=== PATIENT | male | born 1955 ===

== ENCOUNTER 2017-01-03 10:46 | Inpatient (IN) | payer BC ==
[2017-01-03 11:03] VITALS: BMI 31.3
--- NOTE | 2017-01-03 13:03 | C.PDOC ---
History Of Present Illness 61 year old male presents to the ED for evaluation after taking out his george catheter himself at 3am today. Patient's daughter noted he had the catheter placed two weeks at [facility] and he has had pain. He is scheduled to have surgery on his prostate next month. Patient is uncooperative and daughter denies fever, diarrhea, or vomiting. Chief Complaint (Nursing): Male Genitourinary History Per: Patient, Family (daughter ) History/Exam Limitations: other (patient was not answering questions ) Onset/Duration Of Symptoms: Hrs Current Symptoms Are (Timing): Still Present Quality Of Discomfort: "Pain" Associated Symptoms: denies: Fever, Chills, Nausea, Vomiting, Diarrhea Alleviating Factors: None Recent travel outside of the [place]: No Past Medical History Reviewed: Historical Data, Nursing Documentation, Vital Signs Vital Signs: Last Vital Signs Temp 98.7 F 01/03/17 17:09 Pulse 93 H 01/03/17 17:09 Resp 18 01/03/17 17:09 BP 103/56 L 01/03/17 17:09 Pulse Ox 100 01/03/17 18:21 Family History: States: Unknown Family Hx - Social History Hx Alcohol Use: No Hx Substance Use: No - Immunization History Hx Influenza Vaccination: No Review Of Systems Constitutional: Negative for: Fever, Chills Gastrointestinal: Negative for: Vomiting, Diarrhea Genitourinary: Positive for: Other (Evaluation after george catheter removal ) Physical Exam - Physical Exam Appears: Non-toxic, No Acute Distress, Other (Patient is warm to touch ) Skin: Warm, Dry Head: Atraumatic, Normacephalic Eye(s): bilateral: Normal Inspection, PERRL, EOMI Oral Mucosa: Moist Neck: Supple Cardiovascular: Rhythm Regular, No Murmur Respiratory: No Rales, No Rhonchi, No Wheezing, Other (clear to auscultation bilaterally) Gastrointestinal/Abdominal: Soft, No Tenderness, No Distention, No Guarding, No Rebound Male Genital: Normal Inspection, No Inguinal Swelling, No Scrotal Swelling Extremity: Normal ROM, No Tenderness Neurological/Psych: Oriented x3 ED Course And Treatment - Laboratory Results Result Diagrams: 01/03/17 14:50 01/03/17 14:50 O2 Sat by Pulse Oximetry: 100 (RA) Progress Note: George catheter was placed. Medical Decision Making Medical Decision Making: UTI on UA. Fever responded to APAP. Patient admitted for fever, UTI to medicine service. Disposition - Disposition Disposition: HOSPITALIZED Disposition Time: 15:15 Condition: STABLE - Clinical Impression Clinical Impression: UTI (urinary tract infection) - Scribe Statement The provider has reviewed the documentation as recorded by the Scribe Mimi Adame All medical record entries made by the Anishibbk were at my direction and personally dictated by me. I have reviewed the chart and agree that the record accurately reflects my personal performance of the history, physical exam, medical decision making, and the department course for this patient. I have also personally directed, reviewed, and agree with the discharge instructions and disposition.
[2017-01-03 15:00] LABS: BASO % 0.4 % (0.0-2.0); EOS % 0.2 % (0.0-4.0); LYMPH # 0.2 K/uL (1.0-4.3); LYMPH % 7.2 % (20.0-40.0); MEAN CELL VOLUME 68.4 fL (80.0-94.0); MEAN CORPUSCULAR HEMOGLOBIN 23.1 pg (27.0-31.0); MEAN CORPUSCULAR HGB CONC 33.8 g/dL (33.0-37.0); MEAN PLATELET VOLUME 9.8 fL (7.2-11.7); RBC URINE 245 /hpf (0-3); URINE BACTERIA OCC (<OCC); URINE BILIRUBIN NEGATIVE (NEGATIVE); URINE BLOOD 3+ (NEGATIVE); URINE COLOR Amber (YELLOW); URINE GLUCOSE (UA) NORMAL (Normal); URINE KETONE TRACE mg/dL (NEGATIVE); URINE LEUKOCYTE ESTERASE 3+ Leu/uL (Negative); URINE PROTEIN 2+ mg/dL (NEGATIVE); URINE UROBILINOGEN NORMAL mg/dL (0.2-1.0); WBC URINE 228 /hpf (0-5); WHITE BLOOD COUNT 3.2 K/uL (4.8-10.8)
[2017-01-03 15:01] LABS: INR 1.3
[2017-01-03 15:03] LABS: PLATELET COUNT 53 K/uL (130-400)
[2017-01-03 15:09] LABS: VENOUS BLOOD GAS BASE EXCESS 3.9 mmol/L (0.0-2.0); VENOUS BLOOD GAS PCO2 38 mmHg (40-60); VENOUS BLOOD PH 7.47 (7.32-7.43)
--- NOTE | 2017-01-03 15:14 | RAD ---
PROCEDURE: Chest dated 01/03/2017. HISTORY: r/o infiltrate COMPARISON: None available. FINDINGS: LUNGS: Poor inspiration with low lung volumes, crowded bronchovascular markings and mild bibasilar atelectasis. . Developing lower lobe infiltrate could be excluded followup radiographs. PLEURA: No pneumothorax or pleural fluid seen. CARDIOVASCULAR: Cardiomegaly. OSSEOUS STRUCTURES: No significant abnormalities. VISUALIZED UPPER ABDOMEN: Normal. OTHER FINDINGS: None. IMPRESSION: Poor inspiration with low lung volumes, crowded bronchovascular markings and mild bibasilar atelectasis.
[2017-01-03 15:28] LABS: CHLORIDE 97 mmol/L (98-107); SODIUM 133 mmol/L (132-148)
[2017-01-03] MEDS ORDERED: cefTRIAXone IV 1 gm in Dextros 50 ML IVPB ONE (15:28)
[2017-01-03 15:29] LABS: NEUTROPHIL 68 % (50-75); POTASSIUM 4.2 mmol/L (3.6-5.2); TOTAL CELLS COUNTED 50
[2017-01-03 15:30] LABS: GFR AFRICAN-AMERICAN > 60
[2017-01-03 15:31] LABS: ALKALINE PHOSPHATASE 95 U/L (38-126); ALT/SGPT 96 U/L (21-72); AST/SGOT 187 U/L (17-59); BILIRUBIN,TOTAL 2.4 mg/dL (0.2-1.3); BLOOD UREA NITROGEN 19 mg/dL (9-20); CALCIUM 9.1 mg/dl (8.6-10.4); CARBON DIOXIDE 28 mmol/L (22-30); GLUCOSE,RANDOM 141 mg/dL (75-110); TOTAL PROTEIN 7.7 g/dL (6.3-8.3)
[2017-01-03] MEDS ORDERED: Sodium Chloride 0.9% 1,000 ML IV SCH ×2 (15:45→17:45)
[2017-01-03] MEDS ORDERED: Sodium Chloride 0.9% 1,000 ML IV ONE ×2 (18:27)
--- NOTE | 2017-01-03 18:34 | CP.PCM.CON ---
History of Present Illness - History of Present Illness History of Present Illness: 61 year old male presents to the ED for evaluation after taking out his george catheter himself at 3am today. Patient's daughter noted he had the catheter placed two weeks at [facility] and he has had pain. He is scheduled to have surgery on his prostate next month. Patient is uncooperative and daughter denies fever, diarrhea, or vomiting. I was called to eval this 61 yo male with Hx of BPH who pulled out his george at home admitted to reg floor with sepsis and now hypotensive awake and responsive but lethargic and c/o abd pain orders given for antibiortics and Stat bolus NS \ Needs transfer to ICU for pressors Review of Systems - Review of Systems Systems not reviewed;Unavailable: Unstable Vital Signs All systems: reviewed and no additional remarkable complaints except - Constitutional Constitutional: As Per HPI - EENT Eyes: absent: As Per HPI, Blind Spots, Blurred Vision, Change in Vision, Decreased Night Vision, Diplopia, Discharge, Dry Eye, Exophthalmos, Floaters, Irritation, Itchy Eyes, Loss of Peripheral Vision, Pain, Photophobia, Requires Corrective Lenses, Sees Flashes, Spots in Vision, Tunnel Vision, Other Visual Disturbances, Loss of Vision, Other Ears: absent: As Per HPI, Decreased Hearing, Ear Discharge, Ear Pain, Tinnitus, Abnormal Hearing, Disequilibrium, Dizziness, Other Nose/Mouth/Throat: absent: As Per HPI, Epistaxis, Nasal Congestion, Nasal Discharge, Nasal Obstruction, Nasal Trauma, Nose Pain, Post Nasal Drip, Sinus Pain, Sinus Pressure, Bleeding Gums, Change in Voice, Dental Pain, Dry Mouth, Dysphagia, Halitosis, Hoarsness, Lip Swelling, Mouth Lesions, Mouth Pain, Odynophagia, Sore Throat, Throat Swelling, Tongue Swelling, Facial Pain, Neck Pain, Neck Mass, Other - Cardiovascular Cardiovascular: absent: As Per HPI, Acrocyanosis, Chest Pain, Chest Pain at Rest , Chest Pain with Activity, Claudication, Diaphoresis, Dyspnea, Dyspnea on Exertion, Edema, Irregular Heart Rhythm, Pain Radiating to Arm/Neck/Jaw, Leg Edema, Leg Ulcers, Lightheadedness, Orthopnea, Palpitations, Paroxysmal Nocturnal Dyspnea, Pedal Edema, Radiating Pain, Rapid Heart Rate, Slow Heart Rate, Syncope, Other - Respiratory Respiratory: absent: As Per HPI, Cough, Dyspnea, Hemoptysis, Dyspnea on Exertion , Wheezing, Snoring, Stridor, Pain on Inspiration, Chest Congestion, Excessive Mucous Production, Change in Mucous Color, Pain with Coughing, Other - Gastrointestinal Gastrointestinal: absent: As Per HPI, Abdominal Pain, Belching, Bloating, Change in Bowel Habits, Change in Stool Character, Coffee Ground Emesis, Constipation, Cramping, Diarrhea, Dyspepsia, Dysphagia, Early Satiety, Excessive Flatus, Fecal Incontinence, Heartburn, Hematemesis, Hematochezia, Loose Stools, Melena, Nausea, Odynophagia, Temesmus, Vomiting, Other - Genitourinary Genitourinary: As Per HPI - Reproductive: Male Reproductive:Male: As Per HPI - Musculoskeletal Musculoskeletal: absent: As Per HPI, Abnormal Gait, Arthralgias, Atrophy, Back Pain, Deformity, Joint Swelling, Limited Range of Motion, Loss of Height, Muscle Cramps, Muscle Weakness, Myalgias, Neck Pain, Numbness, Radiating Pain into Limb, Stiffness, Tingling, Other - Neurological Neurological: As Per HPI - Psychiatric Psychiatric: absent: As Per HPI, Abnormal Sleep Pattern, Anhedonia, Anxiety, Auditory Hallucinations, Behavioral Changes, Change in Appetite, Change in Libido, Confusion, Depression, Difficulty Concentrating, Hallucinations, Homicidal Ideation, Hopelessness, Irritability, Memory Loss, Mood Swings, Panic Attacks, Paranoia, Suicidal Ideation, Visual Hallucinations, Tactile Hallucinations, Other - Endocrine Endocrine: absent: As Per HPI, Change in Body Appearance, Change in Libido, Cold Intolorance, Deepening of Voice, Excessive Sweating, Fatigue, Flushing, Heat Intolorance, Increase in Ring/Shoe/Hat Size, Palpitations, Polydipsia, Polyphagia, Polyuria, Other - Hematologic/Lymphatic Hematologic: absent: As Per HPI, Easy Bleeding, Easy Bruising, Lymphadenopathy, Other Past Patient History - Past Social History Smoking Status: Never Smoked - PSYCHIATRIC Hx Substance Use: No - SURGICAL HISTORY Hx Surgeries: No - ANESTHESIA Hx Anesthesia: No Meds Allergies/Adverse Reactions: Allergies Allergy/AdvReac Type Severity Reaction Status Date / Time No Known Allergies Allergy Verified 01/03/17 11:00 - Medications Medications: Current Medications Enoxaparin Sodium (Lovenox) 40 mg SC DAILY ELZA Sodium Chloride (Sodium Chloride 0.9%) 1,000 mls @ 50 mls/hr IV .Q20H ELZA Sodium Chloride (Sodium Chloride 0.9%) 1,000 mls @ 1,000 mls/hr IV .Q1H ONE Stop: 01/03/17 19:26 Sodium Chloride (Sodium Chloride 0.9%) 1,000 mls @ 1,000 mls/hr IV .Q1H ONE Stop: 01/03/17 19:26 Sodium Chloride (Sodium Chloride 0.9%) 1,000 mls @ 100 mls/hr IV .Q10H ELZA Pantoprazole Sodium (Protonix Inj) 40 mg IVP DAILY ELZA Physical Exam - Constitutional Appears: Toxic, In Acute Distress - Head Exam Head Exam: ATRAUMATIC, NORMAL INSPECTION, NORMOCEPHALIC - Eye Exam Eye Exam: EOMI, PERRL. absent: Scleral icterus - ENT Exam ENT Exam: Mucous Membranes Dry, Normal External Ear Exam - Neck Exam Neck exam: Negative for: Lymphadenopathy - Respiratory Exam Respiratory Exam: Decreased Breath Sounds, Clear to Auscultation Bilateral - Cardiovascular Exam Cardiovascular Exam: Tachycardia, REGULAR RHYTHM, +S1, +S2 - GI/Abdominal Exam GI & Abdominal Exam: Diminished Bowel Sounds, Soft. absent: Tenderness - Rectal Exam Rectal Exam: Deferred - Exam Exam: absent: NORMAL INSPECTION - Extremities Exam Extremities exam: Positive for: pedal pulses present. Negative for: calf tenderness, pedal edema, tenderness - Back Exam Back exam: absent: CVA tenderness (L), CVA tenderness (R), paraspinal tenderness - Neurological Exam Neurological exam: Alert, Altered, CN II-XII Intact, Reflexes Normal - Psychiatric Exam Psychiatric exam: Depressed - Skin Skin Exam: Dry Results - Vital Signs Recent Vital Signs: Last Vital Signs Temp 99.8 F H 01/03/17 18:25 Pulse 95 H 01/03/17 18:25 Resp 20 01/03/17 18:25 BP 68/36 L 01/03/17 18:26 Pulse Ox 100 01/03/17 18:25 - Labs Result Diagrams: 01/03/17 14:50 01/03/17 14:50 Labs: Laboratory Results - last 24 hr 01/03/17 01/03/17 01/03/17 14:50 14:50 14:50 WBC 3.2 L RBC 4.10 L Hgb 9.5 L Hct 28.0 L MCV 68.4 L MCH 23.1 L MCHC 33.8 RDW 15.0 H Plt Count 53 L MPV 9.8 Neut % (Auto) 91.2 H Lymph % (Auto) 7.2 L Collier % (Auto) 1.0 Eos % (Auto) 0.2 Baso % (Auto) 0.4 Neut # 2.9 Lymph # 0.2 L Collier # 0.0 Eos # 0.0 Baso # 0.0 Neutrophils % (Manual) 68 Band Neutrophils % 24 H* Lymphocytes % (Manual) 4 L Monocytes % (Manual) 4 Platelet Estimate Decreased L Polychromasia Slight Hypochromasia (manual) Moderate Poikilocytosis (manual Slight Anisocytosis (manual) Slight Target Cells Slight Tear Drop Cells Slight PT INR APTT pO2 VBG pH VBG pCO2 VBG HCO3 VBG Total CO2 VBG O2 Sat (Calc) VBG Base Excess VBG Potassium Glucose Lactate FiO2 Sodium 133 Potassium 4.2 Chloride 97 L Carbon Dioxide 28 Anion Gap 13 BUN 19 Creatinine 1.1 Est GFR ( Amer) > 60 Est GFR (Non-Af Amer) > 60 Random Glucose 141 H Calcium 9.1 Total Bilirubin 2.4 H AST 187 H ALT 96 H Alkaline Phosphatase 95 Total Protein 7.7 Albumin 3.9 Globulin 3.8 Albumin/Globulin Ratio 1.0 Lipase 51 Venous Blood Potassium Urine Color Monalisa Urine Clarity Hazy Urine pH 6.0 Ur Specific [place] 1.009 Urine Protein 2+ H Urine Glucose (UA) Normal Urine Ketones Trace Urine Blood 3+ H Urine Nitrate Negative Urine Bilirubin Negative Urine Urobilinogen Normal Ur Leukocyte Esterase 3+ H Urine WBC (Auto) 228 H Urine RBC (Auto) 245 H Urine Bacteria Occ H 01/03/17 01/03/17 14:50 15:05 WBC RBC Hgb Hct MCV MCH MCHC RDW Plt Count MPV Neut % (Auto) Lymph % (Auto) Collier % (Auto) Eos % (Auto) Baso % (Auto) Neut # Lymph # Collier # Eos # Baso # Neutrophils % (Manual) Band Neutrophils % Lymphocytes % (Manual) Monocytes % (Manual) Platelet Estimate Polychromasia Hypochromasia (manual) Poikilocytosis (manual Anisocytosis (manual) Target Cells Tear Drop Cells PT 14.1 H INR 1.3 APTT 22 pO2 19 L VBG pH 7.47 H VBG pCO2 38 L VBG HCO3 26.2 VBG Total CO2 28.9 H VBG O2 Sat (Calc) 31.6 L VBG Base Excess 3.9 H VBG Potassium 4.5 Glucose 144 H Lactate 1.8 FiO2 21.0 Sodium 137.0 Potassium Chloride 108.0 H Carbon Dioxide Anion Gap BUN Creatinine Est GFR ( Amer) Est GFR (Non-Af Amer) Random Glucose Calcium Total Bilirubin AST ALT Alkaline Phosphatase Total Protein Albumin Globulin Albumin/Globulin Ratio Lipase Venous Blood Potassium 4.5 Urine Color Urine Clarity Urine pH Ur Specific [place] Urine Protein Urine Glucose (UA) Urine Ketones Urine Blood Urine Nitrate Urine Bilirubin Urine Urobilinogen Ur Leukocyte Esterase Urine WBC (Auto) Urine RBC (Auto) Urine Bacteria Assessment & Plan (1) Sepsis Status: Acute (2) BPH (benign prostatic hyperplasia) Status: Acute (3) UTI (urinary tract infection) Status: Acute - Assessment and Plan (Free Text) Assessment: iv fluids pressors when possible icu eval antibiotics eval for george
[2017-01-03] MEDS ORDERED: Gentamicin 160 MG in Sodium Chloride 0.9% 100 ML IVPB STA (18:39)
[2017-01-03] MEDS ORDERED: Meropenem 1 GM in Sodium Chloride 0.9% 100 ML IVPB STA (18:40)
[2017-01-03 18:55] LABS: VENOUS BLOOD GAS BASE EXCESS 2.4 mmol/L (0.0-2.0); VENOUS BLOOD GAS PCO2 42 mmHg (40-60); VENOUS BLOOD PH 7.42 (7.32-7.43)
[2017-01-03] MEDS ORDERED: Albumin Human 5% (12.5 gm/250 ml) IV ONE (19:09)
[2017-01-03] MEDS ORDERED: Iodixanol 320 MG/ML 100 ML BOTTLE IV ONE (20:25)
--- NOTE | 2017-01-03 20:54 | CP.PCM.CON ---
History of Present Illness - History of Present Illness History of Present Illness: 61yo M. PMHx BPH, indwelling george catheter (recent placement). P/w sepsis with UTI. Review of Systems - Review of Systems All systems: reviewed and no additional remarkable complaints except - Musculoskeletal Musculoskeletal: Back Pain Past Patient History - Past Social History Smoking Status: Never Smoked - PSYCHIATRIC Hx Substance Use: No - SURGICAL HISTORY Hx Surgeries: No - ANESTHESIA Hx Anesthesia: No Meds Allergies/Adverse Reactions: Allergies Allergy/AdvReac Type Severity Reaction Status Date / Time No Known Allergies Allergy Verified 01/03/17 11:00 - Medications Medications: Current Medications Enoxaparin Sodium (Lovenox) 40 mg SC DAILY ELZA Sodium Chloride (Sodium Chloride 0.9%) 1,000 mls @ 50 mls/hr IV .Q20H ELZA Sodium Chloride (Sodium Chloride 0.9%) 1,000 mls @ 100 mls/hr IV .Q10H ELZA Meropenem 1 gm/ Sodium (Chloride) 100 mls @ 100 mls/hr IVPB Q8 ELZA Pantoprazole Sodium (Protonix Inj) 40 mg IVP DAILY ELZA Physical Exam - Constitutional Appears: Well - Head Exam Head Exam: ATRAUMATIC, NORMAL INSPECTION, NORMOCEPHALIC - Eye Exam Eye Exam: EOMI, Normal appearance, PERRL - ENT Exam ENT Exam: Mucous Membranes Moist, Normal Exam - Neck Exam Neck exam: Positive for: Normal Inspection - Respiratory Exam Respiratory Exam: Clear to Auscultation Bilateral, NORMAL BREATHING PATTERN - Cardiovascular Exam Cardiovascular Exam: Tachycardia, REGULAR RHYTHM - GI/Abdominal Exam GI & Abdominal Exam: Normal Bowel Sounds, Soft. absent: Tenderness Additional comments: lower right sided back pain. - Neurological Exam Neurological exam: Alert, CN II-XII Intact, Normal Gait, Oriented x3, Reflexes Normal - Psychiatric Exam Psychiatric exam: Normal Affect, Normal Mood Results - Vital Signs Recent Vital Signs: Last Vital Signs Temp 99.8 F H 01/03/17 18:25 Pulse 95 H 01/03/17 18:25 Resp 20 01/03/17 18:25 BP 68/36 L 01/03/17 18:26 Pulse Ox 100 01/03/17 18:25 - Labs Result Diagrams: 01/03/17 14:50 01/03/17 14:50 Labs: Laboratory Results - last 24 hr 01/03/17 01/03/1717 14:50 14:50 14:50 WBC 3.2 L RBC 4.10 L Hgb 9.5 L Hct 28.0 L MCV 68.4 L MCH 23.1 L MCHC 33.8 RDW 15.0 H Plt Count 53 L MPV 9.8 Neut % (Auto) 91.2 H Lymph % (Auto) 7.2 L [place] % (Auto) 1.0 Eos % (Auto) 0.2 Baso % (Auto) 0.4 Neut # 2.9 Lymph # 0.2 L [place] # 0.0 Eos # 0.0 Baso # 0.0 Neutrophils % (Manual) 68 Band Neutrophils % 24 H* Lymphocytes % (Manual) 4 L Monocytes % (Manual) 4 Platelet Estimate Decreased L Polychromasia Slight Hypochromasia (manual) Moderate Poikilocytosis (manual Slight Anisocytosis (manual) Slight Target Cells Slight Tear Drop Cells Slight PT INR APTT pO2 VBG pH VBG pCO2 VBG HCO3 VBG Total CO2 VBG O2 Sat (Calc) VBG Base Excess VBG Potassium Glucose Lactate FiO2 Sodium 133 Potassium 4.2 Chloride 97 L Carbon Dioxide 28 Anion Gap 13 BUN 19 Creatinine 1.1 Est GFR ( Amer) > 60 Est GFR (Non-Af Amer) > 60 Random Glucose 141 H Calcium 9.1 Total Bilirubin 2.4 H AST 187 H ALT 96 H Alkaline Phosphatase 95 Total Protein 7.7 Albumin 3.9 Globulin 3.8 Albumin/Globulin Ratio 1.0 Lipase 51 Venous Blood Potassium Urine Color Monalisa Urine Clarity Hazy Urine pH 6.0 Ur Specific [place] 1.009 Urine Protein 2+ H Urine Glucose (UA) Normal Urine Ketones Trace Urine Blood 3+ H Urine Nitrate Negative Urine Bilirubin Negative Urine Urobilinogen Normal Ur Leukocyte Esterase 3+ H Urine WBC (Auto) 228 H Urine RBC (Auto) 245 H Urine Bacteria Occ H 01/03/17 01/03/17 01/03/17 14:50 15:05 18:51 WBC RBC Hgb Hct MCV MCH MCHC RDW Plt Count MPV Neut % (Auto) Lymph % (Auto) [place] % (Auto) Eos % (Auto) Baso % (Auto) Neut # Lymph # [place] # Eos # Baso # Neutrophils % (Manual) Band Neutrophils % Lymphocytes % (Manual) Monocytes % (Manual) Platelet Estimate Polychromasia Hypochromasia (manual) Poikilocytosis (manual Anisocytosis (manual) Target Cells Tear Drop Cells PT 14.1 H INR 1.3 APTT 22 pO2 19 L 28 L VBG pH 7.47 H 7.42 VBG pCO2 38 L 42 VBG HCO3 26.2 25.6 VBG Total CO2 28.9 H 28.5 H VBG O2 Sat (Calc) 31.6 L 57.1 VBG Base Excess 3.9 H 2.4 H VBG Potassium 4.5 3.2 L Glucose 144 H 137 H Lactate 1.8 2.3 H FiO2 21.0 Sodium 137.0 133.0 Potassium Chloride 108.0 H 101.0 Carbon Dioxide Anion Gap BUN Creatinine Est GFR ( Amer) Est GFR (Non-Af Amer) Random Glucose Calcium Total Bilirubin AST ALT Alkaline Phosphatase Total Protein Albumin Globulin Albumin/Globulin Ratio Lipase Venous Blood Potassium 4.5 3.2 L Urine Color Urine Clarity Urine pH Ur Specific [place] Urine Protein Urine Glucose (UA) Urine Ketones Urine Blood Urine Nitrate Urine Bilirubin Urine Urobilinogen Ur Leukocyte Esterase Urine WBC (Auto) Urine RBC (Auto) Urine Bacteria Assessment & Plan (1) UTI (urinary tract infection) Assessment and Plan: Neuro: alert and oriented x 3 Pulm: no acute issues, breathing spontaneously on room air CV: mild hypotension, started on fluids and albumin drip. Hem: no acute issues Renal: obstructive uropathy. obtaining CT abdomen r/o renal calculi, assess george placement. monitor urine output. Endo: no acute issues GI: npo ID: sepsis with UTI, continue imipenem DVT proph - heparin sq GI proph - not currently indicated george for strict I/O's during acute illness Code status - full code Critical Care Time spent 35 minutes Multi-disciplinary rounds were performed with house staff, nursing, speech therapy, respiratory therapy, pharmacy and nutrition with integrated input from the primary team/attending and other consulting services. The documented time is cumulative and includes review of patient data/exams/labs/chart review and examination of the patient on rounds and throughout the day; time is exclusive of any procedures or teaching time. Status: Acute
[2017-01-03] MEDS ORDERED: Meropenem 1 GM in Sodium Chloride 0.9% 100 ML IVPB SCH (22:00)
--- NOTE | 2017-01-03 22:12 | CT ---
EXAM: CT Abdomen and Pelvis Without and With Intravenous Contrast CLINICAL HISTORY: 61 years old, male; Pain and condition or disease; Kidney or ureter condition; Hydronephrosis and other: Uti; Abdominal pain; Flank; Lower; Additional info: Back pain TECHNIQUE: Axial computed tomography images of the abdomen and pelvis without and with intravenous contrast. All CT scans at this facility use one or more dose reduction techniques, viz.: automated exposure control; ma/kV adjustment per patient size (including targeted exams where dose is matched to indication; i.e. head); or iterative reconstruction technique. Coronal and sagittal reformatted images were created and reviewed. CONTRAST: 100 mL of visipaque 320 administered intravenously. COMPARISON: No relevant prior studies available. FINDINGS: Atelectasis/scarring at the lung bases. [place] at the right lung base. Significant splenomegaly. Spleen demonstrates capsular calcification. Approximately 2 cm hypoattenuating lesion in the right lobe of the liver, which appears to fill-in on delayed imaging. The pancreas and adrenal glands demonstrate no acute abnormalities. Bilateral fullness of the collecting systems. Ureteral wall appears prominent. Bilateral perinephric and periureteric stranding. Subcentimeter hypoattenuating lesion right kidney. The bladder is collapsed around Dixon catheter limiting its evaluation. Air within the bladder may be iatrogenic. Abnormal appearance to the bladder with thickened wall. Further evaluation recommended. Prostate appears prominent in size. Atherosclerosis. Fat containing left inguinal hernia. Small hiatal hernia. Limited evaluation of bowel without contrast. No small bowel obstruction. No ascites. No free air. Degenerative changes. IMPRESSION: Bilateral fullness of the collecting systems. Ureteral wall appears prominent. Bilateral perinephric and periureteric stranding. Subcentimeter hypoattenuating lesion right kidney. The bladder is collapsed around Dixon catheter limiting its evaluation. Air within the bladder may be iatrogenic. Abnormal appearance to the bladder with thickened wall. Further evaluation recommended. Prostate appears prominent in size. Small hiatal hernia. Significant splenomegaly. Spleen demonstrates capsular calcification. Approximately 2 cm hypoattenuating lesion in the right lobe of the liver, which appears to fill-in on delayed imaging. Further evaluation can be performed with ultrasound or MRI. Please see additional details/findings as above. Correlate clinically. Followup as warranted.
[2017-01-03] MEDS ORDERED: Pneumococcal 23-Valent Vaccine IM ONE (22:25)
[2017-01-03] MEDS: Sodium Chloride 0.9% 1,000 ML IV SCH (23:00)
[2017-01-04] MEDS: Meropenem 1 GM in Sodium Chloride 0.9% 100 ML IVPB SCH ×3 (02:31→18:03)
[2017-01-04] MEDS: Sodium Chloride 0.9% 1,000 ML IV SCH ×2 (05:17→15:22)
[2017-01-04] MEDS: Levothyroxine 75 MCG TAB PO SCH (06:30)
[2017-01-04 06:31] LABS: CHLORIDE 102 mmol/L (98-107); POTASSIUM 3.9 mmol/L (3.6-5.2); SODIUM 134 mmol/L (132-148)
[2017-01-04 06:33] LABS: AST/SGOT 107 U/L (17-59); BILIRUBIN,TOTAL 1.4 mg/dL (0.2-1.3); CARBON DIOXIDE 24 mmol/L (22-30); GFR AFRICAN-AMERICAN > 60
[2017-01-04 06:34] LABS: ALKALINE PHOSPHATASE 67 U/L (38-126); ALT/SGPT 134 U/L (21-72); BLOOD UREA NITROGEN 19 mg/dL (9-20); CALCIUM 7.6 mg/dl (8.6-10.4); GLUCOSE,RANDOM 102 mg/dL (75-110); TOTAL PROTEIN 6.1 g/dL (6.3-8.3)
[2017-01-04 06:36] LABS: BASO % 0.2 % (0.0-2.0); EOS % 0.1 % (0.0-4.0); HEMATOCRIT 22.7 % (35.0-51.0); LYMPH # 0.6 K/uL (1.0-4.3); LYMPH % 5.3 % (20.0-40.0); MEAN CELL VOLUME 68.2 fL (80.0-94.0); MEAN CORPUSCULAR HEMOGLOBIN 22.9 pg (27.0-31.0); MEAN CORPUSCULAR HGB CONC 33.5 g/dL (33.0-37.0); MEAN PLATELET VOLUME 9.8 fL (7.2-11.7); MONO # 0.7 K/uL (0.0-0.8); MONO % 6.6 % (0.0-10.0); NRBC % 0.1 % (0.0-2.0); RED CELL DISTRIBUTION WIDTH 15.1 % (11.5-14.5); WHITE BLOOD COUNT 11.1 K/uL (4.8-10.8)
[2017-01-04 06:41] LABS: PLATELET COUNT 42 K/uL (130-400)
[2017-01-04 09:03] LABS: NEUTROPHIL 66 % (50-75); REACTIVE LYMPHOCYTES 1 % (0-0); TOTAL CELLS COUNTED 100
[2017-01-04 09:05] LABS: LARGE PLATELETS PRESENT
[2017-01-04] MEDS: Enoxaparin 40 mg Syringe SC SCH (09:58)
[2017-01-04] MEDS: Propranolol 60 mg ER Cap PO SCH (09:59)
[2017-01-04] MEDS: (Novolog) Insulin Aspart, Recombinant 100 u/ml 10 ml vial SC SCH ×4 (12:20→21:25)
--- NOTE | 2017-01-04 15:10 | CP.PCM.PN ---
Subjective - Date & Time of Evaluation Date of Evaluation: 01/04/17 Time of Evaluation: 12:00 - Subjective Subjective: clinically same Objective - Vital Signs/Intake and Output Vital Signs (last 24 hours): Temp Pulse Resp BP Pulse Ox 98.2 F 88 26 H 86/47 L 99 01/04/17 12:00 01/04/17 15:00 01/04/17 15:00 01/04/17 14:04 01/04/17 15:00 Intake and Output: 01/04/17 01/04/17 06:59 18:59 Intake Total 1700 1240 Output Total 1620 965 Balance 80 275 - Medications Medications: Current Medications Aspirin (Ecotrin) 81 mg PO DAILY [facility] Last Admin: 01/04/17 09:59 Dose: 81 mg Enoxaparin Sodium (Lovenox) 40 mg SC DAILY [facility] Last Admin: 01/04/17 09:58 Dose: 40 mg Hydrochlorothiazide (Hydrodiuril) 25 mg PO DAILY [facility] Last Admin: 01/04/17 09:59 Dose: Not Given Sodium Chloride (Sodium Chloride 0.9%) 1,000 mls @ 100 mls/hr IV .Q10H [facility] Last Admin: 01/04/17 05:17 Dose: 100 mls/hr Meropenem 1 gm/ Sodium (Chloride) 100 mls @ 100 mls/hr IVPB Q8H [facility] Last Admin: 01/04/17 10:00 Dose: 100 mls/hr Insulin Aspart (Novolog) 0 unit SC ACHS [facility] PRN Reason: Protocol Last Admin: 01/04/17 12:24 Dose: Not Given Levothyroxine Sodium (Synthroid) 75 mcg PO DAILY@0630 [facility] Losartan Potassium (Cozaar) 100 mg PO DAILY [facility] Last Admin: 01/04/17 09:59 Dose: Not Given Pantoprazole Sodium (Protonix Inj) 40 mg IVP DAILY [facility] Last Admin: 01/04/17 09:58 Dose: 40 mg Pneumococcal Polyvalent Vaccine (Pneumovax 23 Vaccine) 0.5 ml IM .ONCE ONE Stop: 01/06/17 01:31 Propranolol HCl (Inderal La) 60 mg PO DAILY [facility] Last Admin: 01/04/17 09:59 Dose: Not Given Tamsulosin HCl (Flomax) 0.4 mg PO DAILY [facility] Last Admin: 01/04/17 09:59 Dose: 0.4 mg - Labs Labs: 01/04/17 06:07 01/04/17 06:07 PT 14.1 SECONDS (9.7-12.2) H 01/03/17 14:50 INR 1.3 01/03/17 14:50 APTT 22 SECONDS (21-34) 01/03/17 14:50 Assessment and Plan - Assessment and Plan (Free Text) Plan: Continue Lovenox 40 mg and continue on meropenem continue septic workup Synthroid Discussed with the family member who is sitting as patient has possible history of for hepatocellular carcinoma seen by somebody Frank patient knows that patient did not give a diagnosis of hepatocellular carcinoma the patient claims patient has cirrhosis Patient is seen by the urologist last name is Dr. Downing does not know the first name somebody in the [place] Patient has multiple lesions on the liver and the kidney Continue meropenem ID consult Follow-up with the septic workup
--- NOTE | 2017-01-04 16:52 | CP.CCUPN ---
CCU Subjective - Physician Review Events Since Last Encounter (Free Text): 01/04/17 16:47 patient is feeling better, no complaints CCU Objective - Vital Signs / Intake & Output Vital Signs (Last 4 hours): Vital Signs Temp Pulse Resp BP Pulse Ox 01/04/17 16:30 80/53 L 01/04/17 16:29 97 H 13 100 01/04/17 16:05 91 H 27 H 82/49 L 100 01/04/17 16:00 99.4 F 90 19 99 01/04/17 15:30 91 H 22 94 L 01/04/17 15:05 88 23 85/47 L 100 01/04/17 15:00 88 26 H 99 01/04/17 14:30 86 26 H 98 01/04/17 14:04 82 20 86/47 L 100 01/04/17 14:00 83 20 100 01/04/17 13:30 82 21 100 01/04/17 13:04 83 28 H 97/55 L 99 01/04/17 13:00 83 28 H 100 Intake and Output (Last 8hrs): Intake & Output 01/04/17 01/04/17 01/04/17 06:59 14:59 22:59 Intake Total 1350 1460 200 Output Total 920 1140 300 Balance 430 320 -100 Intake: Intake, IV Amount 1350 1000 200 Left Forearm 300 900 200 Right Antecubital 1050 100 Oral 460 Output: Urine 920 1140 300 Urethral (George) 920 1140 300 Other: # Bowel Movements 0 0 - Physical Exam Head: Positive for: Atraumatic, Normocephalic Pupils: Positive for: PERRL Extroacular Muscles: Positive for: EOMI Conjunctiva: Positive for: Normal Mouth: Positive for: Moist Mucous Membranes Pharnyx: Positive for: Normal Neck: Positive for: Normal Range of Motion Respiratory/Chest: Positive for: Clear to Auscultation, Good Air Exchange, Respiratory Distress Cardiovascular: Positive for: Regular Rate and Rhythm Abdomen: Positive for: Normal Bowel Sounds. Negative for: Tenderness, Distention Neurological: Positive for: GCS=15 Psychiatric: Positive for: Alert, Oriented x 3 - Medications Active Medications: Active Medications Generic Name Dose Route Start Last Admin Trade Name Freq PRN Reason Stop Dose Admin Aspirin 81 mg 01/04/17 10:00 01/04/17 09:59 Ecotrin PO 81 mg DAILY ELZA Administration Enoxaparin Sodium 40 mg 01/04/17 10:00 01/04/17 09:58 Lovenox SC 40 mg DAILY ELZA Administration Hydrochlorothiazide 25 mg 01/04/17 10:00 01/04/17 09:59 Hydrodiuril PO Not Given DAILY ELZA Sodium Chloride 1,000 mls @ 100 mls/hr 01/03/17 18:30 01/04/17 15:22 Sodium Chloride 0.9% IV 100 mls/hr .Q10H ELZA Administration Meropenem 1 gm/ Sodium 100 mls @ 100 mls/hr 01/04/17 03:00 01/04/17 10:00 Chloride IVPB 100 mls/hr Q8H ELZA Administration Insulin Aspart 0 unit 01/04/17 11:30 01/04/17 16:40 Novolog SC Not Given ACHS [facility] Protocol Levothyroxine Sodium 75 mcg 01/04/17 06:30 Synthroid PO DAILY@0630 [facility] Losartan Potassium 100 mg 01/04/17 10:00 01/04/17 09:59 Cozaar PO Not Given DAILY ELZA Pantoprazole Sodium 40 mg 01/04/17 10:00 01/04/17 09:58 Protonix Inj IVP 40 mg DAILY [facility] Administration Pneumococcal Polyvalent Vaccine 0.5 ml 01/06/17 01:30 Pneumovax 23 Vaccine IM 01/06/17 01:31 .ONCE ONE Propranolol HCl 60 mg 01/04/17 10:00 01/04/17 09:59 Inderal La PO Not Given DAILY [facility] Tamsulosin HCl 0.4 mg 01/04/17 10:00 01/04/17 09:59 Flomax PO 0.4 mg DAILY ELZA Administration - Patient Studies Lab Studies: Microbiology Studies 01/03/17 15:15 Blood Culture - Preliminary Blood NO GROWTH AFTER 24 HOURS 01/03/17 22:19 MRSA Culture (Admit) - Final Nose MRSA NOT DETECTED 01/03/17 15:00 Gram Stain - Final Blood 01/03/17 Unknown Urine Culture - Preliminary Urine Gram Negative Marty Lab Studies 01/04/17 01/04/17 01/04/17 Range/Units 15:58 11:18 07:13 WBC (4.8-10.8) K/uL RBC (4.40-5.90) Mil/uL Hgb (12.0-18.0) g/dL Hct (35.0-51.0) % MCV (80.0-94.0) fL MCH (27.0-31.0) pg MCHC (33.0-37.0) g/dL RDW (11.5-14.5) % Plt Count (130-400) K/uL MPV (7.2-11.7) fL Neut % (Auto) (50.0-75.0) % Lymph % (Auto) (20.0-40.0) % [place] % (Auto) (0.0-10.0) % Eos % (Auto) (0.0-4.0) % Baso % (Auto) (0.0-2.0) % Neut # (1.8-7.0) K/uL Lymph # (1.0-4.3) K/uL [place] # (0.0-0.8) K/uL Eos # (0.0-0.7) K/uL Baso # (0.0-0.2) K/uL Neutrophils % (Manual) (50-75) % Band Neutrophils % (0-2) % Lymphocytes % (Manual) (20-40) % Reactive Lymphs % (0-0) % Monocytes % (Manual) (0-10) % Toxic Granulation Platelet Estimate (NORMAL) Large Platelets Polychromasia Hypochromasia (manual) Anisocytosis (manual) Microcytosis (manual) Target Cells pO2 (30-55) mm/Hg VBG pH (7.32-7.43) VBG pCO2 (40-60) mmHg VBG HCO3 mmol/L VBG Total CO2 (22-28) mmol/L VBG O2 Sat (Calc) (40-65) % VBG Base Excess (0.0-2.0) mmol/L VBG Potassium (3.6-5.2) mmol/L Sodium (132-148) mmol/l Chloride (98-107) mmol/L Glucose (75-110) mg/dl Lactate (0.7-2.1) mmol/L Potassium (3.6-5.2) mmol/L Carbon Dioxide (22-30) mmol/L Anion Gap (10-20) BUN (9-20) mg/dL Creatinine (0.8-1.5) mg/dL Est GFR ( Amer) Est GFR (Non-Af Amer) POC Glucose (mg/dL) 136 H 190 H 117 H (65-110) mg/dL Random Glucose (75-110) mg/dL Lactic Acid (0.7-2.1) mmol/L Calcium (8.6-10.4) mg/dl Total Bilirubin (0.2-1.3) mg/dL AST (17-59) U/L ALT (21-72) U/L Alkaline Phosphatase (38-126) U/L Total Protein (6.3-8.3) g/dL Albumin (3.5-5.0) g/dL Globulin (2.2-3.9) gm/dL Albumin/Globulin Ratio (1.0-2.1) Venous Blood Potassium (3.6-5.2) mmol/L 01/04/17 01/04/17 01/04/17 Range/Units 06:07 06:07 06:07 WBC 11.1 H D (4.8-10.8) K/uL RBC 3.32 L (4.40-5.90) Mil/uL Hgb 7.6 L (12.0-18.0) g/dL Hct 22.7 L (35.0-51.0) % MCV 68.2 L (80.0-94.0) fL MCH 22.9 L (27.0-31.0) pg MCHC 33.5 (33.0-37.0) g/dL RDW 15.1 H (11.5-14.5) % Plt Count 42 L (130-400) K/uL MPV 9.8 (7.2-11.7) fL Neut % (Auto) 87.8 H (50.0-75.0) % Lymph % (Auto) 5.3 L (20.0-40.0) % [place] % (Auto) 6.6 (0.0-10.0) % Eos % (Auto) 0.1 (0.0-4.0) % Baso % (Auto) 0.2 (0.0-2.0) % Neut # 9.7 H (1.8-7.0) K/uL Lymph # 0.6 L (1.0-4.3) K/uL [place] # 0.7 (0.0-0.8) K/uL Eos # 0.0 (0.0-0.7) K/uL Baso # 0.0 (0.0-0.2) K/uL Neutrophils % (Manual) 66 (50-75) % Band Neutrophils % 22 H* (0-2) % Lymphocytes % (Manual) 5 L (20-40) % Reactive Lymphs % 1 H (0-0) % Monocytes % (Manual) 6 (0-10) % Toxic Granulation Present Platelet Estimate Markedly decreased L (NORMAL) Large Platelets Present Polychromasia Slight Hypochromasia (manual) Moderate Anisocytosis (manual) Moderate Microcytosis (manual) Moderate Target Cells Slight pO2 (30-55) mm/Hg VBG pH (7.32-7.43) VBG pCO2 (40-60) mmHg VBG HCO3 mmol/L VBG Total CO2 (22-28) mmol/L VBG O2 Sat (Calc) (40-65) % VBG Base Excess (0.0-2.0) mmol/L VBG Potassium (3.6-5.2) mmol/L Sodium 134 (132-148) mmol/l Chloride 102 (98-107) mmol/L Glucose (75-110) mg/dl Lactate (0.7-2.1) mmol/L Potassium 3.9 (3.6-5.2) mmol/L Carbon Dioxide 24 (22-30) mmol/L Anion Gap 12 (10-20) BUN 19 (9-20) mg/dL Creatinine 1.1 (0.8-1.5) mg/dL Est GFR ( Amer) > 60 Est GFR (Non-Af Amer) > 60 POC Glucose (mg/dL) (65-110) mg/dL Random Glucose 102 (75-110) mg/dL Lactic Acid 1.4 (0.7-2.1) mmol/L Calcium 7.6 L (8.6-10.4) mg/dl Total Bilirubin 1.4 H (0.2-1.3) mg/dL AST 107 H D (17-59) U/L ALT 134 H D (21-72) U/L Alkaline Phosphatase 67 (38-126) U/L Total Protein 6.1 L (6.3-8.3) g/dL Albumin 3.0 L D (3.5-5.0) g/dL Globulin 3.1 (2.2-3.9) gm/dL Albumin/Globulin Ratio 1.0 (1.0-2.1) Venous Blood Potassium (3.6-5.2) mmol/L 01/03/17 01/03/17 Range/Units 22:39 18:51 WBC (4.8-10.8) K/uL RBC (4.40-5.90) Mil/uL Hgb (12.0-18.0) g/dL Hct (35.0-51.0) % MCV (80.0-94.0) fL MCH (27.0-31.0) pg MCHC (33.0-37.0) g/dL RDW (11.5-14.5) % Plt Count (130-400) K/uL MPV (7.2-11.7) fL Neut % (Auto) (50.0-75.0) % Lymph % (Auto) (20.0-40.0) % [place] % (Auto) (0.0-10.0) % Eos % (Auto) (0.0-4.0) % Baso % (Auto) (0.0-2.0) % Neut # (1.8-7.0) K/uL Lymph # (1.0-4.3) K/uL [place] # (0.0-0.8) K/uL Eos # (0.0-0.7) K/uL Baso # (0.0-0.2) K/uL Neutrophils % (Manual) (50-75) % Band Neutrophils % (0-2) % Lymphocytes % (Manual) (20-40) % Reactive Lymphs % (0-0) % Monocytes % (Manual) (0-10) % Toxic Granulation Platelet Estimate (NORMAL) Large Platelets Polychromasia Hypochromasia (manual) Anisocytosis (manual) Microcytosis (manual) Target Cells pO2 28 L (30-55) mm/Hg VBG pH 7.42 (7.32-7.43) VBG pCO2 42 (40-60) mmHg VBG HCO3 25.6 mmol/L VBG Total CO2 28.5 H (22-28) mmol/L VBG O2 Sat (Calc) 57.1 (40-65) % VBG Base Excess 2.4 H (0.0-2.0) mmol/L VBG Potassium 3.2 L (3.6-5.2) mmol/L Sodium 133.0 (132-148) mmol/l Chloride 101.0 (98-107) mmol/L Glucose 137 H (75-110) mg/dl Lactate 2.3 H (0.7-2.1) mmol/L Potassium (3.6-5.2) mmol/L Carbon Dioxide (22-30) mmol/L Anion Gap (10-20) BUN (9-20) mg/dL Creatinine (0.8-1.5) mg/dL Est GFR ( Amer) Est GFR (Non-Af Amer) POC Glucose (mg/dL) 143 H (65-110) mg/dL Random Glucose (75-110) mg/dL Lactic Acid (0.7-2.1) mmol/L Calcium (8.6-10.4) mg/dl Total Bilirubin (0.2-1.3) mg/dL AST (17-59) U/L ALT (21-72) U/L Alkaline Phosphatase (38-126) U/L Total Protein (6.3-8.3) g/dL Albumin (3.5-5.0) g/dL Globulin (2.2-3.9) gm/dL Albumin/Globulin Ratio (1.0-2.1) Venous Blood Potassium 3.2 L (3.6-5.2) mmol/L Laboratory Results - last 24 hr 01/03/17 01/03/17 01/04/17 18:51 22:39 06:07 WBC 11.1 H D RBC 3.32 L Hgb 7.6 L Hct 22.7 L MCV 68.2 L MCH 22.9 L MCHC 33.5 RDW 15.1 H Plt Count 42 L MPV 9.8 Neut % (Auto) 87.8 H Lymph % (Auto) 5.3 L [place] % (Auto) 6.6 Eos % (Auto) 0.1 Baso % (Auto) 0.2 Neut # 9.7 H Lymph # 0.6 L [place] # 0.7 Eos # 0.0 Baso # 0.0 Neutrophils % (Manual) 66 Band Neutrophils % 22 H* Lymphocytes % (Manual) 5 L Reactive Lymphs % 1 H Monocytes % (Manual) 6 Toxic Granulation Present Platelet Estimate Markedly decreased L Large Platelets Present Polychromasia Slight Hypochromasia (manual) Moderate Anisocytosis (manual) Moderate Microcytosis (manual) Moderate Target Cells Slight pO2 28 L VBG pH 7.42 VBG pCO2 42 VBG HCO3 25.6 VBG Total CO2 28.5 H VBG O2 Sat (Calc) 57.1 VBG Base Excess 2.4 H VBG Potassium 3.2 L Sodium 133.0 Chloride 101.0 Glucose 137 H Lactate 2.3 H Potassium Carbon Dioxide Anion Gap BUN Creatinine Est GFR ( Amer) Est GFR (Non-Af Amer) POC Glucose (mg/dL) 143 H Random Glucose Lactic Acid Calcium Total Bilirubin AST ALT Alkaline Phosphatase Total Protein Albumin Globulin Albumin/Globulin Ratio Venous Blood Potassium 3.2 L 01/04/17 01/04/17 01/04/17 06:07 06:07 07:13 WBC RBC Hgb Hct MCV MCH MCHC RDW Plt Count MPV Neut % (Auto) Lymph % (Auto) [place] % (Auto) Eos % (Auto) Baso % (Auto) Neut # Lymph # [place] # Eos # Baso # Neutrophils % (Manual) Band Neutrophils % Lymphocytes % (Manual) Reactive Lymphs % Monocytes % (Manual) Toxic Granulation Platelet Estimate Large Platelets Polychromasia Hypochromasia (manual) Anisocytosis (manual) Microcytosis (manual) Target Cells pO2 VBG pH VBG pCO2 VBG HCO3 VBG Total CO2 VBG O2 Sat (Calc) VBG Base Excess VBG Potassium Sodium 134 Chloride 102 Glucose Lactate Potassium 3.9 Carbon Dioxide 24 Anion Gap 12 BUN 19 Creatinine 1.1 Est GFR ( Amer) > 60 Est GFR (Non-Af Amer) > 60 POC Glucose (mg/dL) 117 H Random Glucose 102 Lactic Acid 1.4 Calcium 7.6 L Total Bilirubin 1.4 H AST 107 H D ALT 134 H D Alkaline Phosphatase 67 Total Protein 6.1 L Albumin 3.0 L D Globulin 3.1 Albumin/Globulin Ratio 1.0 Venous Blood Potassium 01/04/17 01/04/17 11:18 15:58 WBC RBC Hgb Hct MCV MCH MCHC RDW Plt Count MPV Neut % (Auto) Lymph % (Auto) [place] % (Auto) Eos % (Auto) Baso % (Auto) Neut # Lymph # [place] # Eos # Baso # Neutrophils % (Manual) Band Neutrophils % Lymphocytes % (Manual) Reactive Lymphs % Monocytes % (Manual) Toxic Granulation Platelet Estimate Large Platelets Polychromasia Hypochromasia (manual) Anisocytosis (manual) Microcytosis (manual) Target Cells pO2 VBG pH VBG pCO2 VBG HCO3 VBG Total CO2 VBG O2 Sat (Calc) VBG Base Excess VBG Potassium Sodium Chloride Glucose Lactate Potassium Carbon Dioxide Anion Gap BUN Creatinine Est GFR ( Amer) Est GFR (Non-Af Amer) POC Glucose (mg/dL) 190 H 136 H Random Glucose Lactic Acid Calcium Total Bilirubin AST ALT Alkaline Phosphatase Total Protein Albumin Globulin Albumin/Globulin Ratio Venous Blood Potassium Fingerstick Blood Sugar Results: 190 Review of Systems - Review of Systems All systems: reviewed and no additional remarkable complaints except (nothing) Critical Care Progress Note - Nutrition Nutrition: Nutrition Category Date Time Status Heart Healthy Diet [DIET] Diets 01/03/17 Dinner Active Assessment/Plan (1) UTI (urinary tract infection) Assessment and plan: 61yo M. PMHx BPH, indwelling george catheter (recent placement). P/w sepsis with UTI. Neuro: alert and oriented x 3 Pulm: no acute issues, breathing spontaneously on room air CV: mild hypotension, started on fluids and albumin drip. Hem: no acute issues Renal: urine output is within normal limits, CT abdomen showed no evidence of obstructive uropathy. Holding Flomax with current hypotension, george in place. Endo: no acute issues GI: regular diet. ID: sepsis with UTI, continue imipenem. DVT proph - heparin sq GI proph - not currently indicated george for strict I/O's during acute illness Code status - full code Critical Care Time spent 35 minutes Multi-disciplinary rounds were performed with house staff, nursing, speech therapy, respiratory therapy, pharmacy and nutrition with integrated input from the primary team/attending and other consulting services. The documented time is cumulative and includes review of patient data/exams/labs/chart review and examination of the patient on rounds and throughout the day; time is exclusive of any procedures or teaching time. Current Visit: Yes Status: Acute
[2017-01-04 18:29] LABS: BASO % 0.3 % (0.0-2.0); EOS % 0.4 % (0.0-4.0); HEMATOCRIT 24.3 % (35.0-51.0); LYMPH # 1.2 K/uL (1.0-4.3); LYMPH % 14.9 % (20.0-40.0); MEAN CORPUSCULAR HEMOGLOBIN 23.2 pg (27.0-31.0); MEAN CORPUSCULAR HGB CONC 34.1 g/dL (33.0-37.0); MEAN PLATELET VOLUME 9.7 fL (7.2-11.7); MONO # 0.4 K/uL (0.0-0.8); MONO % 5.3 % (0.0-10.0); NRBC % 0.1 % (0.0-2.0); PLATELET COUNT 44 K/uL (130-400); WHITE BLOOD COUNT 8.3 K/uL (4.8-10.8)
[2017-01-04 18:51] LABS: NEUTROPHIL 77 % (50-75); TOTAL CELLS COUNTED 100
[2017-01-04 18:52] LABS: LARGE PLATELETS PRESENT
--- NOTE | 2017-01-04 20:30 | CP.PCM.CON ---
History of Present Illness - History of Present Illness History of Present Illness: 61 year old male with a history of BPH s/p recent george catheter placement, admitted with urosepsis, found to have anemia and thrombocytopenia. The patient is unaware of having blood problems in the past. He does have suprapubic and flank pain. He noted to subjective fevers and chills. He also has noted some blood from his george catheter but denies further abnormal bleeding and bruising. Past medical history: BPH Past surgical history: None Family history: Denies hematologic and oncologic problems Social history: Denies tobacco, alcohol and illicit drug use. Allergies: NKA Review of systems: All remaining review of systems including HEENT, cardiovasular, respiratory, gastrointestinal, genitourinary, musculoskeletal, dermatologic, neurologic, and psychiatric are negative unless mentioned in the HPI. Past Patient History - Past Medical History & Family History Past Medical History?: Yes - Past Social History Smoking Status: Never Smoked - CARDIAC Other/Comment: Cardiac Stenting 2006 in [place] - MUSCULOSKELETAL/RHEUMATOLOGICAL Hx Falls: No - GENITOURINARY/GYNECOLOGICAL Hx Prostate Problems: Yes (BPH) Other/Comment: Under care of Dr Downing at [facility] - PSYCHIATRIC Hx Substance Use: No - SURGICAL HISTORY Hx Surgeries: No - ANESTHESIA Hx Anesthesia: No Meds Allergies/Adverse Reactions: Allergies Allergy/AdvReac Type Severity Reaction Status Date / Time No Known Allergies Allergy Verified 01/03/17 11:00 - Medications Medications: Current Medications Acetaminophen (Tylenol 325mg Tab) 650 mg PO Q6 PRN PRN Reason: Fever >100.4 F Last Admin: 01/04/17 20:27 Dose: 650 mg Aspirin (Ecotrin) 81 mg PO DAILY [facility] Last Admin: 01/04/17 09:59 Dose: 81 mg Enoxaparin Sodium (Lovenox) 40 mg SC DAILY [facility] Last Admin: 01/04/17 09:58 Dose: 40 mg Hydrochlorothiazide (Hydrodiuril) 25 mg PO DAILY [facility] Last Admin: 01/04/17 09:59 Dose: Not Given Sodium Chloride (Sodium Chloride 0.9%) 1,000 mls @ 100 mls/hr IV .Q10H [facility] Last Admin: 01/04/17 15:22 Dose: 100 mls/hr Meropenem 1 gm/ Sodium (Chloride) 100 mls @ 100 mls/hr IVPB Q8H [facility] Last Admin: 01/04/17 18:03 Dose: 100 mls/hr Insulin Aspart (Novolog) 0 unit SC ACHS [facility] PRN Reason: Protocol Last Admin: 01/04/17 16:40 Dose: Not Given Levothyroxine Sodium (Synthroid) 75 mcg PO DAILY@0630 [facility] Last Admin: 01/04/17 06:30 Dose: Not Given Losartan Potassium (Cozaar) 100 mg PO DAILY [facility] Last Admin: 01/04/17 09:59 Dose: Not Given Pantoprazole Sodium (Protonix Inj) 40 mg IVP DAILY [facility] Last Admin: 01/04/17 09:58 Dose: 40 mg Pneumococcal Polyvalent Vaccine (Pneumovax 23 Vaccine) 0.5 ml IM .ONCE ONE Stop: 01/06/17 01:31 Propranolol HCl (Inderal La) 60 mg PO DAILY [facility] Last Admin: 01/04/17 09:59 Dose: Not Given Tamsulosin HCl (Flomax) 0.4 mg PO DAILY [facility] Last Admin: 01/04/17 09:59 Dose: 0.4 mg Physical Exam - Head Exam Head Exam: ATRAUMATIC - Eye Exam Eye Exam: Normal appearance - ENT Exam ENT Exam: Mucous Membranes Dry - Respiratory Exam Respiratory Exam: NORMAL BREATHING PATTERN - Cardiovascular Exam Cardiovascular Exam: +S1, +S2 - GI/Abdominal Exam GI & Abdominal Exam: Normal Bowel Sounds - Extremities Exam Extremities exam: Positive for: normal inspection - Neurological Exam Neurological exam: Oriented x3 - Psychiatric Exam Psychiatric exam: Normal Affect, Normal Mood - Skin Skin Exam: Warm Results - Vital Signs Recent Vital Signs: Last Vital Signs Temp 101.1 F H 01/04/17 20:00 Pulse 89 01/04/17 20:00 Resp 26 H 01/04/17 20:00 BP 107/57 L 01/04/17 20:00 Pulse Ox 97 01/04/17 20:00 - Labs Result Diagrams: 01/07/17 07:37 01/07/17 07:37 Labs: Laboratory Results - last 24 hr 01/03/17 01/04/17 01/04/17 22:39 06:07 06:07 WBC 11.1 H D RBC 3.32 L Hgb 7.6 L Hct 22.7 L MCV 68.2 L MCH 22.9 L MCHC 33.5 RDW 15.1 H Plt Count 42 L MPV 9.8 Neut % (Auto) 87.8 H Lymph % (Auto) 5.3 L [place] % (Auto) 6.6 Eos % (Auto) 0.1 Baso % (Auto) 0.2 Neut # 9.7 H Lymph # 0.6 L [place] # 0.7 Eos # 0.0 Baso # 0.0 Neutrophils % (Manual) 66 Band Neutrophils % 22 H* Lymphocytes % (Manual) 5 L Reactive Lymphs % 1 H Monocytes % (Manual) 6 Differential Comment Toxic Granulation Present Platelet Estimate Markedly decreased L Large Platelets Present Polychromasia Slight Hypochromasia (manual) Moderate Anisocytosis (manual) Moderate Microcytosis (manual) Moderate Target Cells Slight Sodium 134 Potassium 3.9 Chloride 102 Carbon Dioxide 24 Anion Gap 12 BUN 19 Creatinine 1.1 Est GFR ( Amer) > 60 Est GFR (Non-Af Amer) > 60 POC Glucose (mg/dL) 143 H Random Glucose 102 Lactic Acid Calcium 7.6 L Total Bilirubin 1.4 H AST 107 H D ALT 134 H D Alkaline Phosphatase 67 Total Protein 6.1 L Albumin 3.0 L D Globulin 3.1 Albumin/Globulin Ratio 1.0 01/04/17 01/04/17 01/04/17 06:07 07:13 11:18 WBC RBC Hgb Hct MCV MCH MCHC RDW Plt Count MPV Neut % (Auto) Lymph % (Auto) [place] % (Auto) Eos % (Auto) Baso % (Auto) Neut # Lymph # [place] # Eos # Baso # Neutrophils % (Manual) Band Neutrophils % Lymphocytes % (Manual) Reactive Lymphs % Monocytes % (Manual) Differential Comment Toxic Granulation Platelet Estimate Large Platelets Polychromasia Hypochromasia (manual) Anisocytosis (manual) Microcytosis (manual) Target Cells Sodium Potassium Chloride Carbon Dioxide Anion Gap BUN Creatinine Est GFR ( Amer) Est GFR (Non-Af Amer) POC Glucose (mg/dL) 117 H 190 H Random Glucose Lactic Acid 1.4 Calcium Total Bilirubin AST ALT Alkaline Phosphatase Total Protein Albumin Globulin Albumin/Globulin Ratio 01/04/17 01/04/17 15:58 18:15 WBC 8.3 RBC 3.58 L Hgb 8.3 L Hct 24.3 L MCV 68.0 L MCH 23.2 L MCHC 34.1 RDW 15.0 H Plt Count 44 L MPV 9.7 Neut % (Auto) 79.1 H Lymph % (Auto) 14.9 L [place] % (Auto) 5.3 Eos % (Auto) 0.4 Baso % (Auto) 0.3 Neut # 6.5 Lymph # 1.2 [place] # 0.4 Eos # 0.0 Baso # 0.0 Neutrophils % (Manual) 77 H Band Neutrophils % Lymphocytes % (Manual) 20 Reactive Lymphs % Monocytes % (Manual) 3 Differential Comment Y Toxic Granulation Platelet Estimate Markedly decreased L Large Platelets Present Polychromasia Hypochromasia (manual) Slight Anisocytosis (manual) Slight Microcytosis (manual) Moderate Target Cells Sodium Potassium Chloride Carbon Dioxide Anion Gap BUN Creatinine Est GFR ( Amer) Est GFR (Non-Af Amer) POC Glucose (mg/dL) 136 H Random Glucose Lactic Acid Calcium Total Bilirubin AST ALT Alkaline Phosphatase Total Protein Albumin Globulin Albumin/Globulin Ratio Assessment & Plan - Assessment and Plan (Free Text) Assessment: 1. Thrombocytopenia - suspect sepsis related - recommend checking HIV and hepatitis panel - hold DVT prophylaxis and check heparin antibody and serotonin release assay - will review peripheral smear 2. Anemia - check ferritin, retic count, b12, folate, FOBT 3. Liver lesion - recommend US abdomen - check AFP and CA 19-9 4. Renal lesions - ultrasound of the abdomen Thank you for this interesting consult.
[2017-01-05] MEDS: Sodium Chloride 0.9% 1,000 ML IV SCH ×2 (00:59→10:24)
[2017-01-05] MEDS: Meropenem 1 GM in Sodium Chloride 0.9% 100 ML IVPB SCH ×2 (02:39→11:39)
[2017-01-05] MEDS: Levothyroxine 75 MCG TAB PO SCH (05:52)
[2017-01-05 06:55] LABS: CHLORIDE 106 mmol/L (98-107); POTASSIUM 3.6 mmol/L (3.6-5.2); SODIUM 136 mmol/L (132-148)
[2017-01-05 06:57] LABS: GFR AFRICAN-AMERICAN > 60
[2017-01-05 06:58] LABS: ALB/GLOB RATIO 0.9 (1.0-2.1); ALKALINE PHOSPHATASE 78 U/L (38-126); AST/SGOT 46 U/L (17-59); BILIRUBIN,TOTAL 0.9 mg/dL (0.2-1.3); BLOOD UREA NITROGEN 12 mg/dL (9-20); CARBON DIOXIDE 23 mmol/L (22-30); GLUCOSE,RANDOM 92 mg/dL (75-110); PHOSPHOROUS 1.9 mg/dL (2.5-4.5); TOTAL PROTEIN 6.3 g/dL (6.3-8.3)
[2017-01-05 06:59] LABS: ALT/SGPT 91 U/L (21-72); BASO # 0.1 K/uL (0.0-0.2); BASO % 0.7 % (0.0-2.0); CALCIUM 7.9 mg/dl (8.6-10.4); EOS # 0.1 K/uL (0.0-0.7); EOS % 1.2 % (0.0-4.0); HEMATOCRIT 21.6 % (35.0-51.0); LYMPH # 0.6 K/uL (1.0-4.3); LYMPH % 7.9 % (20.0-40.0); MAGNESIUM 1.9 mg/dL (1.6-2.3); MEAN CELL VOLUME 68.9 fL (80.0-94.0); MEAN CORPUSCULAR HEMOGLOBIN 23.1 pg (27.0-31.0); MEAN CORPUSCULAR HGB CONC 33.5 g/dL (33.0-37.0); MEAN PLATELET VOLUME 10.3 fL (7.2-11.7); MONO # 0.4 K/uL (0.0-0.8); MONO % 5.7 % (0.0-10.0); PLATELET COUNT 37 K/uL (130-400); RED CELL DISTRIBUTION WIDTH 14.9 % (11.5-14.5); WHITE BLOOD COUNT 7.2 K/uL (4.8-10.8)
[2017-01-05 08:38] LABS: NEUTROPHIL 77 % (50-75); TOTAL CELLS COUNTED 100
[2017-01-05 08:40] LABS: GIANT PLATELETS PRESENT
[2017-01-05] MEDS: (Novolog) Insulin Aspart, Recombinant 100 u/ml 10 ml vial SC SCH ×5 (08:58→21:45)
[2017-01-05] MEDS: Enoxaparin 40 mg Syringe SC SCH (11:06)
[2017-01-05] MEDS ORDERED: Potassium Phosphate 30 MMOLE in Sodium Chloride 0.9% 250 ML IV ONE (12:00)
--- NOTE | 2017-01-05 12:15 | CON ---
COMPREHENSIVE UROLOGIC ICU CONSULTATION DATE: 01/04/2017 TIME OF CONSULTATION: Roughly 04:30 p.m. in the ICU. HISTORY OF PRESENT ILLNESS: The patient is a 61-year-old male from the [place], who came to [facility] Emergency Room with a history of pulling out his Dixon catheter for diagnosis of BPH and urinary retention. The patient was previously scheduled for prostate surgery in January by Dr. Downing at [facility]. This prostate surgery according to the patient and the family was for benign disease. No history of cancer, especially prostate cancer. The patient currently has a Dixon catheter draining cloudy erwin urine well and the urine culture shows gram-negative rods. The patient was initially given 1 dose of gentamicin and 1 dose of Rocephin IV. The patient is now on meropenem as prescribed by Dr. Nieto (ID). The patient is currently resting comfortably with Dixon catheter draining erwin urine well, but he does complain of some right low back pain. Abdominopelvic CT with and without IV contrast done on 01/03/2017, showed bilateral fullness of the collecting systems. Ureteral wall appears to be prominent. Bilateral perinephric and periureteric stranding. Subcentimeter hypoattenuating lesion in the right kidney and bladder was collapsed around the Dixon catheter limiting its evaluation. Air within the bladder may be iatrogenic, most likely from the insertion of the Dixon catheter. Abnormal appearance of the bladder with thickened wall. Further evaluation recommended; however, this may all have been evaluated completely by Dr. Downing. Prostate appears prominent in size. Small hiatal hernia. Significant splenomegaly. Spleen demonstrates capsular calcification. Approximately 2 cm hypoattenuating lesion in the right lobe of the liver, which appears to fill in on delayed imaging. Further evaluation can be performed with ultrasound or MRI. PAST MEDICAL HISTORY: Positive for diabetes mellitus, hypertension, and thyroid disease. PAST SURGICAL HISTORY: He has no past surgical history. ALLERGIES: HE HAS NO KNOWN ALLERGIES TO ANY MEDICATION. PHYSICAL EXAMINATION GENERAL: The patient is a well-developed, well-nourished male. He is alert, oriented. VITAL SIGNS: Shows a pulse rate of 88, blood pressure is 85/47 and this is one of the reasons why the patient was transferred to the ICU, because he became hypotensive. His O2 sats on nasal cannula is 100%. His temperature has remained afebrile during this hospitalization except during his initial admission, his last temperature in the ICU was 99.4. HEENT: Grossly within normal limits. NECK: Supple. Thyroid not palpable. ABDOMEN: Soft. Not distended or tender. No CVA tenderness and no suprapubic tenderness at this time with the Dixon catheter draining erwin urine well. LABORATORY DATA: His laboratory evaluation today on 01/04/2017, shows a CBC with a WBC count of 11.1, hemoglobin of 7.6 and hematocrit of 22.7 indicating severe anemia with platelet count of 42, indicating thrombocytopenia. His chem profile shows a sodium of 134, potassium of 3.9, chloride of 102, CO2 of 24, BUN and creatinine of 19 and 1.1 respectively with a GFR of greater than 60. His random glucose today is 136. His AST was 107, which was elevated and his ALT was 134, which was also elevated. Alk phosphatase is 67. His urinalysis on 01/03/2017 showed the color was erwin, clarity was hazy, pH was 6.0, specific gravity 1.009, protein 2+, glucose normal, ketones trace, blood 3+, nitrite negative, bilirubin negative, urobilinogen normal, 3+ leukocyte esterase, 228 wbc's, 245 rbc's with occasional bacteria per high power field. DIAGNOSTIC IMPRESSION FOR THIS PATIENT: 1. Urinary retention. 2. Benign prostatic hypertrophy. 3. Urosepsis. 4. Microscopic hematuria secondary to probable urethral injury from pulling out his Dixon catheter. 5. A subcentimeter hypoattenuating lesion in the right kidney, which may have been evaluated by Dr. Downing in the past. 6. Severe anemia. 7. Thrombocytopenia. PLAN FOR THIS PATIENT: Just continue the patient on IV antibiotics for treatment of his urosepsis as per Dr. Nieto (ID). The patient can eventually be discharged back to Dr. Downing at [facility] for his prostate surgery, which the family and the patient thinks may be a laser surgery of the prostate. Chad De Paz MD
--- NOTE | 2017-01-05 14:18 | CP.PCM.PN ---
Subjective - Date & Time of Evaluation Date of Evaluation: 01/05/17 Time of Evaluation: 08:00 - Subjective Subjective: doing better PLts still low- etio unclear switch to Cipro IV Objective - Vital Signs/Intake and Output Vital Signs (last 24 hours): Temp Pulse Resp BP Pulse Ox 99.0 F 75 25 H 112/65 95 01/05/17 12:00 01/05/17 13:00 01/05/17 13:00 01/05/17 12:05 01/05/17 13:00 Intake and Output: 01/05/17 01/05/17 06:59 18:59 Intake Total 1420 1063 Output Total 1055 950 Balance 365 113 - Medications Medications: Current Medications Acetaminophen (Tylenol 325mg Tab) 650 mg PO Q6 PRN PRN Reason: Fever >100.4 F Last Admin: 01/04/17 20:27 Dose: 650 mg Aspirin (Ecotrin) 81 mg PO DAILY [facility] Last Admin: 01/05/17 10:23 Dose: 81 mg Enoxaparin Sodium (Lovenox) 40 mg SC DAILY [facility] Last Admin: 01/05/17 11:06 Dose: Not Given Famotidine (Pepcid) 40 mg PO DAILY [facility] Last Admin: 01/05/17 11:38 Dose: Not Given Hydrochlorothiazide (Hydrodiuril) 25 mg PO DAILY [facility] Last Admin: 01/04/17 09:59 Dose: Not Given Potassium Phosphate 30 mmole/ (Sodium Chloride) 260 mls @ 63 mls/hr IV ONCE ONE Stop: 01/05/17 16:07 Last Admin: 01/05/17 12:09 Dose: 63 mls/hr Tigecycline 100 mg/ Sodium (Chloride) 100 mls @ 100 mls/hr IVPB ONCE ONE Stop: 01/05/17 12:14 Tigecycline 50 mg/ Sodium (Chloride) 100 mls @ 100 mls/hr IVPB Q12H [facility] Insulin Aspart (Novolog) 0 unit SC ACHS [facility] PRN Reason: Protocol Last Admin: 01/05/17 11:31 Dose: Not Given Levothyroxine Sodium (Synthroid) 75 mcg PO DAILY@0630 [facility] Last Admin: 01/05/17 05:52 Dose: 75 mcg Losartan Potassium (Cozaar) 100 mg PO DAILY [facility] Last Admin: 01/04/17 09:59 Dose: Not Given Pneumococcal Polyvalent Vaccine (Pneumovax 23 Vaccine) 0.5 ml IM .ONCE ONE Stop: 01/06/17 01:31 Propranolol HCl (Inderal La) 60 mg PO DAILY [facility] Last Admin: 01/04/17 09:59 Dose: Not Given Tamsulosin HCl (Flomax) 0.4 mg PO DAILY [facility] Last Admin: 01/04/17 09:59 Dose: 0.4 mg - Labs Labs: 01/05/17 06:32 01/05/17 06:32 PT 14.1 SECONDS (9.7-12.2) H 01/03/17 14:50 INR 1.3 01/03/17 14:50 APTT 22 SECONDS (21-34) 01/03/17 14:50 - Constitutional Appears: Non-toxic, Chronically Ill - Head Exam Head Exam: NORMOCEPHALIC - Eye Exam Eye Exam: PERRL - ENT Exam ENT Exam: Mucous Membranes Dry - Neck Exam Neck Exam: absent: Lymphadenopathy - Respiratory Exam Respiratory Exam: Decreased Breath Sounds - Cardiovascular Exam Cardiovascular Exam: REGULAR RHYTHM - GI/Abdominal Exam GI & Abdominal Exam: Distended, Soft - Rectal Exam Rectal Exam: Deferred - Exam Exam: NORMAL INSPECTION - Extremities Exam Extremities Exam: absent: Calf Tenderness, Pedal Edema - Back Exam Back Exam: absent: CVA tenderness (L), CVA tenderness (R) - Neurological Exam Neurological Exam: Alert, Awake, Oriented x3 - Psychiatric Exam Psychiatric exam: Normal Mood - Skin Skin Exam: Dry Assessment and Plan (1) Sepsis Status: Acute (2) BPH (benign prostatic hyperplasia) Status: Acute (3) UTI (urinary tract infection) Status: Acute - Assessment and Plan (Free Text) Assessment: cont iv antibiotitics and Heme eval
[2017-01-05] MEDS: Ciprofloxacin 400mg/200ml D5W 400 MG/200 ML BAG IVPB SCH (14:42)
--- NOTE | 2017-01-05 15:46 | CON ---
DATE: ADDENDUM PHYSICAL EXAMINATION GENITAL: Shows non-circumcised, normal glans and meatus without any rashes or lesions visualized. Testes were down bilaterally, nontender without any masses. RECTAL: Shows normal rectal tone without fluctuance or masses and prostate is slightly enlarged, smooth, symmetrical and was nontender without nodules or indurations with a palpable median sulcus. Chad De Paz MD
--- NOTE | 2017-01-05 17:19 | CP.PCM.PN ---
Subjective - Date & Time of Evaluation Date of Evaluation: 01/05/17 Time of Evaluation: 12:20 - Subjective Subjective: clinically same Objective - Vital Signs/Intake and Output Vital Signs (last 24 hours): Temp Pulse Resp BP Pulse Ox 98.8 F 75 25 H 124/64 100 01/05/17 16:00 01/05/17 17:04 01/05/17 17:04 01/05/17 17:04 01/05/17 17:04 Intake and Output: 01/05/17 01/05/17 06:59 18:59 Intake Total 1420 1552 Output Total 1055 1520 Balance 365 32 - Medications Medications: Current Medications Acetaminophen (Tylenol 325mg Tab) 650 mg PO Q6 PRN PRN Reason: Fever >100.4 F Last Admin: 01/04/17 20:27 Dose: 650 mg Aspirin (Ecotrin) 81 mg PO DAILY [facility] Last Admin: 01/05/17 10:23 Dose: 81 mg Enoxaparin Sodium (Lovenox) 40 mg SC DAILY [facility] Last Admin: 01/05/17 11:06 Dose: Not Given Famotidine (Pepcid) 40 mg PO DAILY [facility] Last Admin: 01/05/17 11:38 Dose: Not Given Hydrochlorothiazide (Hydrodiuril) 25 mg PO DAILY [facility] Last Admin: 01/04/17 09:59 Dose: Not Given Ciprofloxacin (Cipro 400mg/200ml Dsw) 400 mg in 200 mls @ 133 mls/hr IVPB Q12H [facility] Last Admin: 01/05/17 14:42 Dose: 133 mls/hr Insulin Aspart (Novolog) 0 unit SC ACHS [facility] PRN Reason: Protocol Last Admin: 01/05/17 16:31 Dose: Not Given Levothyroxine Sodium (Synthroid) 75 mcg PO DAILY@0630 [facility] Last Admin: 01/05/17 05:52 Dose: 75 mcg Losartan Potassium (Cozaar) 100 mg PO DAILY [facility] Last Admin: 01/04/17 09:59 Dose: Not Given Pneumococcal Polyvalent Vaccine (Pneumovax 23 Vaccine) 0.5 ml IM .ONCE ONE Stop: 01/06/17 01:31 Propranolol HCl (Inderal La) 60 mg PO DAILY [facility] Last Admin: 01/04/17 09:59 Dose: Not Given Tamsulosin HCl (Flomax) 0.4 mg PO DAILY [facility] Last Admin: 01/04/17 09:59 Dose: 0.4 mg - Labs Labs: 01/05/17 06:32 01/05/17 06:32 PT 14.1 SECONDS (9.7-12.2) H 01/03/17 14:50 INR 1.3 01/03/17 14:50 APTT 22 SECONDS (21-34) 01/03/17 14:50 - Constitutional Appears: Well - Head Exam Head Exam: ATRAUMATIC, NORMAL INSPECTION, NORMOCEPHALIC - Eye Exam Eye Exam: EOMI, Normal appearance, PERRL Pupil Exam: NORMAL ACCOMODATION, PERRL - ENT Exam ENT Exam: Mucous Membranes Moist, Normal Exam - Neck Exam Neck Exam: Full ROM, Normal Inspection. absent: Lymphadenopathy - Respiratory Exam Respiratory Exam: Decreased Breath Sounds - Cardiovascular Exam Cardiovascular Exam: REGULAR RHYTHM, +S1, +S2 - GI/Abdominal Exam GI & Abdominal Exam: Soft, Diminished Bowel Sounds - Rectal Exam Rectal Exam: Deferred
[2017-01-06] MEDS ORDERED: Pneumococcal 23-Valent Vaccine IM ONE ×2 (01:30→10:00)
[2017-01-06] MEDS: Ciprofloxacin 400mg/200ml D5W 400 MG/200 ML BAG IVPB SCH ×2 (02:57→17:30)
[2017-01-06] MEDS: Levothyroxine 75 MCG TAB PO SCH (06:45)
[2017-01-06] MEDS: (Novolog) Insulin Aspart, Recombinant 100 u/ml 10 ml vial SC SCH ×4 (08:23→21:30)
--- NOTE | 2017-01-06 08:32 | CP.PCM.PN ---
Subjective - Date & Time of Evaluation Date of Evaluation: 01/06/17 Time of Evaluation: 08:20 - Subjective Subjective: PGY3 Medicine Note - Dr. Dyana Downing's service: Patient seen and examined at bedside this AM. Patient reports a feeling a heaviness in his flanks. Patient denies fever, chills, chest pain, SOB, abdominal pain, nausea, vomiting, diarrhea. Patient very lethargic. Objective - Vital Signs/Intake and Output Vital Signs (last 24 hours): Temp Pulse Resp BP Pulse Ox 98.8 F 74 16 119/70 99 01/06/17 00:02 01/06/17 00:02 01/06/17 00:02 01/06/17 00:02 01/06/17 00:02 Intake and Output: 01/06/17 01/06/17 06:59 18:59 Intake Total 420 Output Total 1500 Balance -1080 - Medications Medications: Current Medications Acetaminophen (Tylenol 325mg Tab) 650 mg PO Q6 PRN PRN Reason: Fever >100.4 F Last Admin: 01/04/17 20:27 Dose: 650 mg Aspirin (Ecotrin) 81 mg PO DAILY [facility] Last Admin: 01/05/17 10:23 Dose: 81 mg Enoxaparin Sodium (Lovenox) 40 mg SC DAILY [facility] Last Admin: 01/05/17 11:06 Dose: Not Given Famotidine (Pepcid) 40 mg PO DAILY [facility] Last Admin: 01/05/17 11:38 Dose: Not Given Hydrochlorothiazide (Hydrodiuril) 25 mg PO DAILY [facility] Last Admin: 01/04/17 09:59 Dose: Not Given Ciprofloxacin (Cipro 400mg/200ml Dsw) 400 mg in 200 mls @ 133 mls/hr IVPB Q12H [facility] Last Admin: 01/06/17 02:57 Dose: 133 mls/hr Insulin Aspart (Novolog) 0 unit SC ACHS [facility] PRN Reason: Protocol Last Admin: 01/06/17 08:23 Dose: Not Given Levothyroxine Sodium (Synthroid) 75 mcg PO DAILY@0630 [facility] Last Admin: 01/06/17 06:45 Dose: 75 mcg Losartan Potassium (Cozaar) 100 mg PO DAILY [facility] Last Admin: 01/04/17 09:59 Dose: Not Given Pneumococcal Polyvalent Vaccine (Pneumovax 23 Vaccine) 0.5 ml IM .ONCE ONE Stop: 01/06/17 10:01 Potassium Phos/Sodium Phos (Neutra-Phos) 1 pkt PO TID [facility] Propranolol HCl (Inderal La) 60 mg PO DAILY [facility] Last Admin: 01/04/17 09:59 Dose: Not Given Tamsulosin HCl (Flomax) 0.4 mg PO DAILY [facility] Last Admin: 01/04/17 09:59 Dose: 0.4 mg - Labs Labs: 01/05/17 06:32 01/05/17 06:32 PT 14.1 SECONDS (9.7-12.2) H 01/03/17 14:50 INR 1.3 01/03/17 14:50 APTT 22 SECONDS (21-34) 01/03/17 14:50 - Constitutional Appears: Non-toxic, No Acute Distress - Head Exam Head Exam: NORMAL INSPECTION - ENT Exam ENT Exam: Mucous Membranes Moist - Respiratory Exam Respiratory Exam: Clear to Ausculation Bilateral, NORMAL BREATHING PATTERN. absent: Rales, Rhonchi, Wheezes - Cardiovascular Exam Cardiovascular Exam: REGULAR RHYTHM, +S1, +S2. absent: Gallop, Rubs, Murmur - GI/Abdominal Exam GI & Abdominal Exam: Soft, Normal Bowel Sounds. absent: Tenderness - Back Exam Back Exam: CVA tenderness (L), CVA tenderness (R) - Neurological Exam Neurological Exam: Awake - Psychiatric Exam Psychiatric exam: Flat Affect - Skin Skin Exam: Normal Color, Warm Assessment and Plan - Assessment and Plan (Free Text) Assessment: UTI Urine culture 01/03 positive for Raoultella Ornithinolytica resistant to ampicillin, sensitive to cipro Lactic Acid 1.4 Meropenem 1gm IVPB Q8H 01/04 one dose (has been discontinued) Ciprofloxacin 400mg IVPB Q12H started 01/05, day 2 ID consult - Dr. Nieto - help appreciated Anemia Hgb 7.2 on 01/05 If Hgb drops below 7, will transfuse F/U CBC today Hematology consult - Dr. Burce - help appreciated - awaiting call back Thrombocytopenia Platelets 37 on 01/05 F/U CBC today Hematology consult - Dr. Bruce - help appreciated - awaiting call back BPH with hydronephrosis Dixon catheter in place Per urology consult, Dr. De Paz (help appreciated), patient is to follow up with his urologist at [facility] who has surgery planned for January Flomax on hold HTN Continue home HCTZ 25mg PO daily and Losartan 100mg PO daily and Propanolol 60mg PO daily (on hold) BP controlled DM Holding home Metformin Lantus ISS Hypothyroidism Continue home synthroid 75mcg PO daily Hypophosphatemia Phosphorous 1.9 on 01/05 Neutra-Phos added TID F/U phosphorous tomorrow Prophylactic Measure Pepcid 40mg PO daily Lovenox 40mg SC daily All management per Dr. Dyana Downing
[2017-01-06 08:44] LABS: HEMATOCRIT 21.8 % (35.0-51.0); MEAN CORPUSCULAR HEMOGLOBIN 23.1 pg (27.0-31.0); MEAN PLATELET VOLUME 10.4 fL (7.2-11.7); PLATELET COUNT 51 K/uL (130-400); RED CELL DISTRIBUTION WIDTH 15.1 % (11.5-14.5); WHITE BLOOD COUNT 5.6 K/uL (4.8-10.8)
[2017-01-06 08:57] LABS: CHLORIDE 105 mmol/L (98-107)
[2017-01-06 08:58] LABS: POTASSIUM 4.3 mmol/L (3.6-5.2); SODIUM 135 mmol/L (132-148)
[2017-01-06 09:00] LABS: CARBON DIOXIDE 24 mmol/L (22-30); GFR AFRICAN-AMERICAN > 60
[2017-01-06 09:02] LABS: ALB/GLOB RATIO 1.3 (1.0-2.1); ALKALINE PHOSPHATASE 82 U/L (38-126); ALT/SGPT 66 U/L (21-72); AST/SGOT 29 U/L (17-59); BILIRUBIN,TOTAL 0.8 mg/dL (0.2-1.3); BLOOD UREA NITROGEN 7 mg/dL (9-20); CALCIUM 8.2 mg/dl (8.6-10.4); GLUCOSE,RANDOM 111 mg/dL (75-110); MAGNESIUM 1.7 mg/dL (1.6-2.3); PHOSPHOROUS 2.2 mg/dL (2.5-4.5); TOTAL PROTEIN 5.5 g/dL (6.3-8.3)
[2017-01-06 10:07] LABS: LYMPH # 0.6 K/uL (1.0-4.3); MONO # 0.3 K/uL (0.0-0.8)
[2017-01-06 10:12] LABS: NEUTROPHIL 71 % (50-75); TOTAL CELLS COUNTED 100
--- NOTE | 2017-01-06 11:29 | CP.PCM.PN ---
Subjective - Date & Time of Evaluation Date of Evaluation: 01/06/17 Time of Evaluation: 08:00 - Subjective Subjective: blood and urine isolates are different pt remains weak bedridden and lethargic repeat blood c/s pending await eval consider GI eval Cont IV antibiotics Objective - Vital Signs/Intake and Output Vital Signs (last 24 hours): Temp Pulse Resp BP Pulse Ox 98.8 F 70 20 122/73 97 01/06/17 08:47 01/06/17 08:47 01/06/17 08:47 01/06/17 08:47 01/06/17 08:47 Intake and Output: 01/06/17 01/06/17 06:59 18:59 Intake Total 420 Output Total 1500 Balance -1080 - Medications Medications: Current Medications Acetaminophen (Tylenol 325mg Tab) 650 mg PO Q6 PRN PRN Reason: Fever >100.4 F Last Admin: 01/04/17 20:27 Dose: 650 mg Aspirin (Ecotrin) 81 mg PO DAILY [facility] Last Admin: 01/05/17 10:23 Dose: 81 mg Enoxaparin Sodium (Lovenox) 40 mg SC DAILY [facility] Last Admin: 01/05/17 11:06 Dose: Not Given Famotidine (Pepcid) 40 mg PO DAILY [facility] Last Admin: 01/05/17 11:38 Dose: Not Given Hydrochlorothiazide (Hydrodiuril) 25 mg PO DAILY [facility] Last Admin: 01/04/17 09:59 Dose: Not Given Ciprofloxacin (Cipro 400mg/200ml Dsw) 400 mg in 200 mls @ 133 mls/hr IVPB Q12H [facility] Last Admin: 01/06/17 02:57 Dose: 133 mls/hr Insulin Aspart (Novolog) 0 unit SC ACHS [facility] PRN Reason: Protocol Last Admin: 01/06/17 08:23 Dose: Not Given Levothyroxine Sodium (Synthroid) 75 mcg PO DAILY@0630 [facility] Last Admin: 01/06/17 06:45 Dose: 75 mcg Losartan Potassium (Cozaar) 100 mg PO DAILY [facility] Last Admin: 01/04/17 09:59 Dose: Not Given Potassium Phos/Sodium Phos (Neutra-Phos) 1 pkt PO TID [facility] Propranolol HCl (Inderal La) 60 mg PO DAILY [facility] Last Admin: 01/04/17 09:59 Dose: Not Given Tamsulosin HCl (Flomax) 0.4 mg PO DAILY [facility] Last Admin: 01/04/17 09:59 Dose: 0.4 mg - Labs Labs: 01/06/17 08:20 01/06/17 08:20 PT 14.1 SECONDS (9.7-12.2) H 01/03/17 14:50 INR 1.3 01/03/17 14:50 APTT 22 SECONDS (21-34) 01/03/17 14:50 - Constitutional Appears: Toxic, Chronically Ill - Head Exam Head Exam: NORMOCEPHALIC - Eye Exam Eye Exam: PERRL - ENT Exam ENT Exam: Mucous Membranes Dry - Neck Exam Neck Exam: absent: Lymphadenopathy - Respiratory Exam Respiratory Exam: Decreased Breath Sounds - Cardiovascular Exam Cardiovascular Exam: Tachycardia, REGULAR RHYTHM, +S1, +S2 - GI/Abdominal Exam GI & Abdominal Exam: Distended, Soft - Rectal Exam Rectal Exam: Deferred - Exam Exam: NORMAL INSPECTION Assessment and Plan (1) Sepsis Status: Acute (2) BPH (benign prostatic hyperplasia) Status: Acute (3) UTI (urinary tract infection) Status: Acute (4) Septic shock due to Escherichia coli Status: Acute (5) Septic shock due to Escherichia coli Status: Acute - Assessment and Plan (Free Text) Assessment: cont iv antibiotics
[2017-01-06] MEDS: Potassium & Sodium Phosphate PO SCH ×3 (11:34→17:59)
[2017-01-06] MEDS: Enoxaparin 40 mg Syringe SC SCH (11:43)
[2017-01-06 12:01] LABS: CA 19-9 < 1.4 U/mL (0-37)
[2017-01-06 12:58] LABS: FOLATE 17.3 ng/mL
--- NOTE | 2017-01-06 16:19 | CP.PCM.CON ---
<Teresa Rueda - Last Filed: 01/06/17 16:13> History of Present Illness - History of Present Illness History of Present Illness: Gastroenterology Fellow/PGY5 Consult Note 61 year old male with history of CAD, Diabetes, Hypertension, and Hypothyroidism presenting after pulling George out at home. 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 Since admission, active treatment of sepsis 2 /2 R. ornithinolytica UTI/pyelonephritis complicated by E. coli Bacteremia. CT A /P imaging revealed a liver lesion for which GI consultation was requested. Denies nausea, vomiting, hematemesis, abdominal pain, abdominal distension, pruritis, confusion, falls, diarrhea, constipation, melena, hematochezia, or unintentional weight loss. Endorses prior EGD/colonoscopy 2 years ago with unknown results and states told to repeat in two years. Family- denies stomach cancer or colon cancer Social- denies tobacco, alcohol, illicit drug use Surgery-cardiac stent 2006 Review of Systems - Review of Systems Review of Systems: 12-point review of systems negative except for as above. Past Patient History - Past Medical History & Family History Past Medical History?: Yes - Past Social History Smoking Status: Never Smoked - CARDIAC Other/Comment: Cardiac Stenting 2006 in [place] - MUSCULOSKELETAL/RHEUMATOLOGICAL Hx Falls: No - GENITOURINARY/GYNECOLOGICAL Hx Prostate Problems: Yes (BPH) Other/Comment: Under care of Dr Downing at [facility] - PSYCHIATRIC Hx Substance Use: No - SURGICAL HISTORY Hx Surgeries: No - ANESTHESIA Hx Anesthesia: No Meds Allergies/Adverse Reactions: Allergies Allergy/AdvReac Type Severity Reaction Status Date / Time No Known Allergies Allergy Verified 01/03/17 11:00 - Medications Medications: Current Medications Acetaminophen (Tylenol 325mg Tab) 650 mg PO Q6 PRN PRN Reason: Fever >100.4 F Last Admin: 01/04/17 20:27 Dose: 650 mg Aspirin (Ecotrin) 81 mg PO DAILY [facility] Last Admin: 01/06/17 11:34 Dose: 81 mg Enoxaparin Sodium (Lovenox) 40 mg SC DAILY [facility] Last Admin: 01/06/17 11:43 Dose: Not Given Famotidine (Pepcid) 40 mg PO DAILY [facility] Last Admin: 01/06/17 11:35 Dose: 40 mg Hydrochlorothiazide (Hydrodiuril) 25 mg PO DAILY [facility] Last Admin: 01/04/17 09:59 Dose: Not Given Ciprofloxacin (Cipro 400mg/200ml Dsw) 400 mg in 200 mls @ 133 mls/hr IVPB Q12H [facility] Last Admin: 01/06/17 02:57 Dose: 133 mls/hr Cefepime HCl 1 gm/ Dextrose 50 mls @ 100 mls/hr IVPB Q8H [facility] Last Admin: 01/06/17 12:50 Dose: 100 mls/hr Insulin Aspart (Novolog) 0 unit SC ACHS [facility] PRN Reason: Protocol Last Admin: 01/06/17 11:44 Dose: Not Given Levothyroxine Sodium (Synthroid) 75 mcg PO DAILY@0630 [facility] Last Admin: 01/06/17 06:45 Dose: 75 mcg Losartan Potassium (Cozaar) 100 mg PO DAILY [facility] Last Admin: 01/04/17 09:59 Dose: Not Given Potassium Phos/Sodium Phos (Neutra-Phos) 1 pkt PO TID [facility] Last Admin: 01/06/17 13:59 Dose: 1 pkt Propranolol HCl (Inderal La) 60 mg PO DAILY [facility] Last Admin: 01/04/17 09:59 Dose: Not Given Tamsulosin HCl (Flomax) 0.4 mg PO DAILY [facility] Last Admin: 01/04/17 09:59 Dose: 0.4 mg Physical Exam - Constitutional Appears: Non-toxic, No Acute Distress - Head Exam Head Exam: ATRAUMATIC, NORMOCEPHALIC - Eye Exam Eye Exam: EOMI, PERRL Pupil Exam: PERRL. absent: Miosis, Mydriatic - ENT Exam ENT Exam: Mucous Membranes Moist, Normal Oropharynx - Neck Exam Neck exam: Positive for: Full Rom, Normal Inspection - Respiratory Exam Respiratory Exam: Clear to Auscultation Bilateral. absent: Rales, Rhonchi, Wheezes - Cardiovascular Exam Cardiovascular Exam: RRR, +S1, +S2. absent: Gallop, Rubs - GI/Abdominal Exam GI & Abdominal Exam: Normal Bowel Sounds, Soft, Tenderness. absent: Distended, Firm, Guarding, Organomegaly, Rebound, Rigid Additional comments: suprapubic tenderness to palpation - Extremities Exam Extremities exam: Positive for: pedal edema - Neurological Exam Neurological exam: Alert - Psychiatric Exam Psychiatric exam: Normal Affect, Normal Mood - Skin Skin Exam: Dry, Intact, Normal Color, Warm Results - Vital Signs Recent Vital Signs: Last Vital Signs Temp 99.2 F 01/06/17 14:51 Pulse 63 01/06/17 14:51 Resp 16 01/06/17 14:51 BP 127/72 01/06/17 14:51 Pulse Ox 97 01/06/17 08:47 - Labs Result Diagrams: 01/06/17 08:20 01/06/17 08:20 Labs: Laboratory Results - last 24 hr 01/05/17 01/05/17 01/06/17 16:16 21:40 07:26 WBC RBC Hgb Hct MCV MCH MCHC RDW Plt Count MPV Neut % (Auto) Lymph % (Auto) [place] % (Auto) Eos % (Auto) Baso % (Auto) Neut # Lymph # [place] # Eos # Baso # Neutrophils % (Manual) Band Neutrophils % Lymphocytes % (Manual) Monocytes % (Manual) Platelet Estimate Hypochromasia (manual) Anisocytosis (manual) Microcytosis (manual) Target Cells Retic Count Sodium Potassium Chloride Carbon Dioxide Anion Gap BUN Creatinine Est GFR ( Amer) Est GFR (Non-Af Amer) POC Glucose (mg/dL) 103 209 H 121 H Random Glucose Calcium Phosphorus Magnesium Ferritin Total Bilirubin AST ALT Alkaline Phosphatase Ammonia Total Protein Albumin Globulin Albumin/Globulin Ratio Alpha Fetoprotein CA 19-9 Antigen Vitamin B12 Folate Hepatitis A IgM Ab Hep Bs Antigen Hep B Core IgM Ab Hepatitis C Antibody HIV 1&2 Antibody Screen Blood Type Blood Type Confirm Antibody Screen 01/06/17 01/06/17 01/06/17 08:20 08:20 08:20 WBC 5.6 RBC 3.20 L Hgb 7.4 L Hct 21.8 L MCV 68.0 L MCH 23.1 L MCHC 34.0 RDW 15.1 H Plt Count 51 L MPV 10.4 Neut % (Auto) 83.0 H Lymph % (Auto) 11.0 L [place] % (Auto) 6.0 Eos % (Auto) 0.0 Baso % (Auto) 0.0 Neut # 4.7 Lymph # 0.6 L [place] # 0.3 Eos # 0.0 Baso # 0.0 Neutrophils % (Manual) 71 Band Neutrophils % 12 H* Lymphocytes % (Manual) 11 L Monocytes % (Manual) 6 Platelet Estimate Decreased L Hypochromasia (manual) Moderate Anisocytosis (manual) Slight Microcytosis (manual) Slight Target Cells Moderate Retic Count Sodium 135 Potassium 4.3 Chloride 105 Carbon Dioxide 24 Anion Gap 11 BUN 7 L Creatinine 0.9 Est GFR ( Amer) > 60 Est GFR (Non-Af Amer) > 60 POC Glucose (mg/dL) Random Glucose 111 H Calcium 8.2 L Phosphorus 2.2 L Magnesium 1.7 Ferritin Total Bilirubin 0.8 AST 29 ALT 66 Alkaline Phosphatase 82 Ammonia Total Protein 5.5 L Albumin 3.1 L Globulin 2.4 Albumin/Globulin Ratio 1.3 Alpha Fetoprotein CA 19-9 Antigen Vitamin B12 Folate Hepatitis A IgM Ab Negative Hep Bs Antigen Negative Hep B Core IgM Ab Negative Hepatitis C Antibody Negative HIV 1&2 Antibody Screen Blood Type Blood Type Confirm Antibody Screen 01/06/17 01/06/17 01/06/17 08:20 10:53 10:53 WBC RBC Hgb Hct MCV MCH MCHC RDW Plt Count MPV Neut % (Auto) Lymph % (Auto) [place] % (Auto) Eos % (Auto) Baso % (Auto) Neut # Lymph # [place] # Eos # Baso # Neutrophils % (Manual) Band Neutrophils % Lymphocytes % (Manual) Monocytes % (Manual) Platelet Estimate Hypochromasia (manual) Anisocytosis (manual) Microcytosis (manual) Target Cells Retic Count 1.3 Sodium Potassium Chloride Carbon Dioxide Anion Gap BUN Creatinine Est GFR ( Amer) Est GFR (Non-Af Amer) POC Glucose (mg/dL) Random Glucose Calcium Phosphorus Magnesium Ferritin 121.0 Total Bilirubin AST ALT Alkaline Phosphatase Ammonia Total Protein Albumin Globulin Albumin/Globulin Ratio Alpha Fetoprotein CA 19-9 Antigen < 1.4 Vitamin B12 848 Folate 17.3 Hepatitis A IgM Ab Hep Bs Antigen Hep B Core IgM Ab Hepatitis C Antibody HIV 1&2 Antibody Screen Negative Blood Type Blood Type Confirm Antibody Screen 01/06/17 01/06/17 01/06/17 10:53 10:53 11:25 WBC RBC Hgb Hct MCV MCH MCHC RDW Plt Count MPV Neut % (Auto) Lymph % (Auto) [place] % (Auto) Eos % (Auto) Baso % (Auto) Neut # Lymph # [place] # Eos # Baso # Neutrophils % (Manual) Band Neutrophils % Lymphocytes % (Manual) Monocytes % (Manual) Platelet Estimate Hypochromasia (manual) Anisocytosis (manual) Microcytosis (manual) Target Cells Retic Count Sodium Potassium Chloride Carbon Dioxide Anion Gap BUN Creatinine Est GFR ( Amer) Est GFR (Non-Af Amer) POC Glucose (mg/dL) 203 H Random Glucose Calcium Phosphorus Magnesium Ferritin Total Bilirubin AST ALT Alkaline Phosphatase Ammonia Total Protein Albumin Globulin Albumin/Globulin Ratio Alpha Fetoprotein 1.5 CA 19-9 Antigen Vitamin B12 Folate Hepatitis A IgM Ab Hep Bs Antigen Hep B Core IgM Ab Hepatitis C Antibody HIV 1&2 Antibody Screen Blood Type B POSITIVE Blood Type Confirm B POSITIVE Antibody Screen Negative 01/06/17 13:41 WBC RBC Hgb Hct MCV MCH MCHC RDW Plt Count MPV Neut % (Auto) Lymph % (Auto) [place] % (Auto) Eos % (Auto) Baso % (Auto) Neut # Lymph # [place] # Eos # Baso # Neutrophils % (Manual) Band Neutrophils % Lymphocytes % (Manual) Monocytes % (Manual) Platelet Estimate Hypochromasia (manual) Anisocytosis (manual) Microcytosis (manual) Target Cells Retic Count Sodium Potassium Chloride Carbon Dioxide Anion Gap BUN Creatinine Est GFR ( Amer) Est GFR (Non-Af Amer) POC Glucose (mg/dL) Random Glucose Calcium Phosphorus Magnesium Ferritin Total Bilirubin AST ALT Alkaline Phosphatase Ammonia 15 Total Protein Albumin Globulin Albumin/Globulin Ratio Alpha Fetoprotein CA 19-9 Antigen Vitamin B12 Folate Hepatitis A IgM Ab Hep Bs Antigen Hep B Core IgM Ab Hepatitis C Antibody HIV 1&2 Antibody Screen Blood Type Blood Type Confirm Antibody Screen Assessment & Plan - Assessment and Plan (Free Text) Assessment: 61 year old male with history of CAD, Diabetes, Hypertension, and Hypothyroidism presenting after pulling George out at home. Active treatment of sepsis 2/2 R. ornithinolytica UTI/pyelonephritis complicated by E. coli Bacteremia. CT A/P imaging revealed a right hepatic 2cm lesion. Prior EGD/ colonoscopy at [place] endorsed to show Gastritis, no polyps, and no varices. Plan: >[facility] records below: >01/2016- CT A/P -1.5cm hemangioma right hepatic lobe >Hepatology visit 11/15/16- repeat U/S -stable hepatic lesion, cirrhosis, hepatosplenomegaly, thrombocytopenia, MANCUSO fibrosure F2 - no risk for DILI or ETOH - recommended MRI with MRCP to evaluate for cirrhosis, fibrosis and malignancy -also recommended bone marrow biopsy, >ER [facility] 12/25/16- history of Sickle cell trait (Staff Counselor last seen 05/2016 - [facility]- [phone] ) Current plan: >MELD [address] >[address] liver protocol for further evaluation of hepatic lesion >normal AFP >Ultrasound pending- follow up for signs of ascites, kidney lesion >receiving 1U pRBC >monitor H/H >may benefit from EGD for variceal screen if cirrhosis confirmed and persistent anemia >obtain records from [place] on prior EGD/colonoscopy >will follow clinical course <Aquiles Jurado - Last Filed: 01/06/17 16:51> Meds - Medications Medications: Current Medications Acetaminophen (Tylenol 325mg Tab) 650 mg PO Q6 PRN PRN Reason: Fever >100.4 F Last Admin: 01/04/17 20:27 Dose: 650 mg Aspirin (Ecotrin) 81 mg PO DAILY [facility] Last Admin: 01/06/17 11:34 Dose: 81 mg Enoxaparin Sodium (Lovenox) 40 mg SC DAILY [facility] Last Admin: 01/06/17 11:43 Dose: Not Given Famotidine (Pepcid) 40 mg PO DAILY [facility] Last Admin: 01/06/17 11:35 Dose: 40 mg Hydrochlorothiazide (Hydrodiuril) 25 mg PO DAILY [facility] Last Admin: 01/04/17 09:59 Dose: Not Given Ciprofloxacin (Cipro 400mg/200ml Dsw) 400 mg in 200 mls @ 133 mls/hr IVPB Q12H [facility] Last Admin: 01/06/17 02:57 Dose: 133 mls/hr Cefepime HCl 1 gm/ Dextrose 50 mls @ 100 mls/hr IVPB Q8H [facility] Last Admin: 01/06/17 12:50 Dose: 100 mls/hr Insulin Aspart (Novolog) 0 unit SC ACHS [facility] PRN Reason: Protocol Last Admin: 01/06/17 11:44 Dose: Not Given Levothyroxine Sodium (Synthroid) 75 mcg PO DAILY@0630 [facility] Last Admin: 01/06/17 06:45 Dose: 75 mcg Losartan Potassium (Cozaar) 100 mg PO DAILY [facility] Last Admin: 01/04/17 09:59 Dose: Not Given Potassium Phos/Sodium Phos (Neutra-Phos) 1 pkt PO TID [facility] Last Admin: 01/06/17 13:59 Dose: 1 pkt Propranolol HCl (Inderal La) 60 mg PO DAILY [facility] Last Admin: 01/04/17 09:59 Dose: Not Given Tamsulosin HCl (Flomax) 0.4 mg PO DAILY [facility] Last Admin: 01/04/17 09:59 Dose: 0.4 mg Results - Vital Signs Recent Vital Signs: Last Vital Signs Temp 99.2 F 01/06/17 14:51 Pulse 63 01/06/17 14:51 Resp 16 01/06/17 14:51 BP 127/72 01/06/17 14:51 Pulse Ox 97 01/06/17 08:47 - Labs Result Diagrams: 01/06/17 08:20 01/06/17 08:20 Labs: Laboratory Results - last 24 hr 01/05/17 01/06/17 01/06/17 21:40 07:26 08:20 WBC 5.6 RBC 3.20 L Hgb 7.4 L Hct 21.8 L MCV 68.0 L MCH 23.1 L MCHC 34.0 RDW 15.1 H Plt Count 51 L MPV 10.4 Neut % (Auto) 83.0 H Lymph % (Auto) 11.0 L [place] % (Auto) 6.0 Eos % (Auto) 0.0 Baso % (Auto) 0.0 Neut # 4.7 Lymph # 0.6 L [place] # 0.3 Eos # 0.0 Baso # 0.0 Neutrophils % (Manual) 71 Band Neutrophils % 12 H* Lymphocytes % (Manual) 11 L Monocytes % (Manual) 6 Platelet Estimate Decreased L Hypochromasia (manual) Moderate Anisocytosis (manual) Slight Microcytosis (manual) Slight Target Cells Moderate Retic Count Sodium Potassium Chloride Carbon Dioxide Anion Gap BUN Creatinine Est GFR ( Amer) Est GFR (Non-Af Amer) POC Glucose (mg/dL) 209 H 121 H Random Glucose Calcium Phosphorus Magnesium Ferritin Total Bilirubin AST ALT Alkaline Phosphatase Ammonia Total Protein Albumin Globulin Albumin/Globulin Ratio Alpha Fetoprotein CA 19-9 Antigen Vitamin B12 Folate Hepatitis A IgM Ab Hep Bs Antigen Hep B Core IgM Ab Hepatitis C Antibody HIV 1&2 Antibody Screen Blood Type Blood Type Confirm Antibody Screen 01/06/17 01/06/17 01/06/17 08:20 08:20 08:20 WBC RBC Hgb Hct MCV MCH MCHC RDW Plt Count MPV Neut % (Auto) Lymph % (Auto) [place] % (Auto) Eos % (Auto) Baso % (Auto) Neut # Lymph # [place] # Eos # Baso # Neutrophils % (Manual) Band Neutrophils % Lymphocytes % (Manual) Monocytes % (Manual) Platelet Estimate Hypochromasia (manual) Anisocytosis (manual) Microcytosis (manual) Target Cells Retic Count Sodium 135 Potassium 4.3 Chloride 105 Carbon Dioxide 24 Anion Gap 11 BUN 7 L Creatinine 0.9 Est GFR ( Amer) > 60 Est GFR (Non-Af Amer) > 60 POC Glucose (mg/dL) Random Glucose 111 H Calcium 8.2 L Phosphorus 2.2 L Magnesium 1.7 Ferritin Total Bilirubin 0.8 AST 29 ALT 66 Alkaline Phosphatase 82 Ammonia Total Protein 5.5 L Albumin 3.1 L Globulin 2.4 Albumin/Globulin Ratio 1.3 Alpha Fetoprotein CA 19-9 Antigen Vitamin B12 Folate Hepatitis A IgM Ab Negative Hep Bs Antigen Negative Hep B Core IgM Ab Negative Hepatitis C Antibody Negative HIV 1&2 Antibody Screen Negative Blood Type Blood Type Confirm Antibody Screen 01/06/17 01/06/17 01/06/17 10:53 10:53 10:53 WBC RBC Hgb Hct MCV MCH MCHC RDW Plt Count MPV Neut % (Auto) Lymph % (Auto) [place] % (Auto) Eos % (Auto) Baso % (Auto) Neut # Lymph # [place] # Eos # Baso # Neutrophils % (Manual) Band Neutrophils % Lymphocytes % (Manual) Monocytes % (Manual) Platelet Estimate Hypochromasia (manual) Anisocytosis (manual) Microcytosis (manual) Target Cells Retic Count 1.3 Sodium Potassium Chloride Carbon Dioxide Anion Gap BUN Creatinine Est GFR ( Amer) Est GFR (Non-Af Amer) POC Glucose (mg/dL) Random Glucose Calcium Phosphorus Magnesium Ferritin 121.0 Total Bilirubin AST ALT Alkaline Phosphatase Ammonia Total Protein Albumin Globulin Albumin/Globulin Ratio Alpha Fetoprotein 1.5 CA 19-9 Antigen < 1.4 Vitamin B12 848 Folate 17.3 Hepatitis A IgM Ab Hep Bs Antigen Hep B Core IgM Ab Hepatitis C Antibody HIV 1&2 Antibody Screen Blood Type Blood Type Confirm Antibody Screen 01/06/17 01/06/17 01/06/17 10:53 11:25 13:41 WBC RBC Hgb Hct MCV MCH MCHC RDW Plt Count MPV Neut % (Auto) Lymph % (Auto) [place] % (Auto) Eos % (Auto) Baso % (Auto) Neut # Lymph # [place] # Eos # Baso # Neutrophils % (Manual) Band Neutrophils % Lymphocytes % (Manual) Monocytes % (Manual) Platelet Estimate Hypochromasia (manual) Anisocytosis (manual) Microcytosis (manual) Target Cells Retic Count Sodium Potassium Chloride Carbon Dioxide Anion Gap BUN Creatinine Est GFR ( Amer) Est GFR (Non-Af Amer) POC Glucose (mg/dL) 203 H Random Glucose Calcium Phosphorus Magnesium Ferritin Total Bilirubin AST ALT Alkaline Phosphatase Ammonia 15 Total Protein Albumin Globulin Albumin/Globulin Ratio Alpha Fetoprotein CA 19-9 Antigen Vitamin B12 Folate Hepatitis A IgM Ab Hep Bs Antigen Hep B Core IgM Ab Hepatitis C Antibody HIV 1&2 Antibody Screen Blood Type B POSITIVE Blood Type Confirm B POSITIVE Antibody Screen Negative Attending/Attestation - Attestation I have personally seen and examined this patient.: Yes I have fully participated in the care of the patient.: Yes I have reviewed all pertinent clinical information: Yes Notes (Text): 01/06/17 16:44 I have seen and examined patient with GI fellow. Agree with above documentation with the following additions. In brief, this is a 61 year old male with history of cirrhosis (unknown etiology), CAD, DM, sickle cell trait, who presents to hospital with complaint of suprapubic pain following removal of george catheter. He is currently undergoing medical therapy for pyelonephritis. GI called for evaluation of liver lesion seen on CT imaging. He denies prior ETOH history, abdominal pain, nausea, vomiting, diarrhea, fever/chills, pruritis , or jaundice. He follows at [facility] for management of cirrhosis with known hepatic hemangioma present. Cirrhosis - unknown etiology, admission MELD 24 Liver lesion, prior known hemangioma. AFP normal. CAD DM Acute pyelonephritis Anemia - Low sodium diabetic diet as tolerated - Obtain triple phase liver CT for further evaluation of lesion - Patient currently receiving PRBC transfusion, continue to monitor H/H - Patient apparently had EGD/colonoscopy 2 years ago at [facility], will attempt to obtain records - Would benefit from repeat EGD for variceal screening given presence of anemia. Will continue to monitor patient clinical course.
--- NOTE | 2017-01-06 18:39 | US ---
HISTORY: right kidney lesion and liver lesion COMPARISON: CT abdomen and pelvis without and with IV contrast performed 01/03/17 TECHNIQUE: Sonographic evaluation of the abdomen. FINDINGS: Examination limited by habitus and bowel gas. LIVER: Measures 14.6 cm in sagittal dimension. Echogenic heterogeneous liver may be seen in setting of hepatic parenchymal disease or fatty infiltration. Complex right hepatic lobe lesion measures approximately 2.3 x 1.5 x 2.1 cm. The main portal vein appears patent with normal directional flow. No intrahepatic bile duct dilatation. GALLBLADDER: No gallstones. No gallbladder wall thickening. Negative sonographic Torres's sign as assessed by the metalworker. COMMON BILE DUCT: Measures 5 mm. PANCREAS: Not well visualized. RIGHT KIDNEY: Measures 11.8 x 6.2 x 7.0cm. No obstructing calculus or hydronephrosis identified. LEFT KIDNEY: Measures 12.1 x 6.5 x 5.9cm. No obstructing calculus or hydronephrosis identified. SPLEEN: Measures approximately 16.5 cm. Calcifications noted at the level of the splenic capsule. AORTA: Not well-visualized. IVC: Not well-visualized. OTHER FINDINGS: None. IMPRESSION: Examination limited by habitus and bowel gas. Indeterminate complex mass within the right hepatic lobe measures approximately 2.3 cm. Echogenic heterogeneous liver may be seen in setting of hepatic parenchymal disease or fatty infiltration. Calcifications involving splenic capsule. Sub cm right renal lesion demonstrated on CT performed 01/03/17 not appreciated on the limited submitted sonographic views.
--- NOTE | 2017-01-06 18:52 | CP.PCM.PN ---
Subjective - Date & Time of Evaluation Date of Evaluation: 01/06/17 Time of Evaluation: 07:40 - Subjective Subjective: clinically same Objective - Vital Signs/Intake and Output Vital Signs (last 24 hours): Temp Pulse Resp BP Pulse Ox 98.3 F 63 20 134/77 98 01/06/17 16:00 01/06/17 16:00 01/06/17 16:00 01/06/17 16:00 01/06/17 16:00 Intake and Output: 01/06/17 01/06/17 06:59 18:59 Intake Total 420 925 Output Total 1500 800 Balance -1080 125 - Medications Medications: Current Medications Acetaminophen (Tylenol 325mg Tab) 650 mg PO Q6 PRN PRN Reason: Fever >100.4 F Last Admin: 01/04/17 20:27 Dose: 650 mg Aspirin (Ecotrin) 81 mg PO DAILY [facility] Last Admin: 01/06/17 11:34 Dose: 81 mg Enoxaparin Sodium (Lovenox) 40 mg SC DAILY [facility] Last Admin: 01/06/17 11:43 Dose: Not Given Famotidine (Pepcid) 40 mg PO DAILY [facility] Last Admin: 01/06/17 11:35 Dose: 40 mg Hydrochlorothiazide (Hydrodiuril) 25 mg PO DAILY [facility] Last Admin: 01/04/17 09:59 Dose: Not Given Ciprofloxacin (Cipro 400mg/200ml Dsw) 400 mg in 200 mls @ 133 mls/hr IVPB Q12H [facility] Last Admin: 01/06/17 17:30 Dose: 133 mls/hr Cefepime HCl 1 gm/ Dextrose 50 mls @ 100 mls/hr IVPB Q8H [facility] Last Admin: 01/06/17 12:50 Dose: 100 mls/hr Insulin Aspart (Novolog) 0 unit SC ACHS [facility] PRN Reason: Protocol Last Admin: 01/06/17 16:30 Dose: Not Given Levothyroxine Sodium (Synthroid) 75 mcg PO DAILY@0630 [facility] Last Admin: 01/06/17 06:45 Dose: 75 mcg Losartan Potassium (Cozaar) 100 mg PO DAILY [facility] Last Admin: 01/04/17 09:59 Dose: Not Given Potassium Phos/Sodium Phos (Neutra-Phos) 1 pkt PO TID [facility] Last Admin: 01/06/17 17:59 Dose: 1 pkt Propranolol HCl (Inderal La) 60 mg PO DAILY [facility] Last Admin: 01/04/17 09:59 Dose: Not Given Tamsulosin HCl (Flomax) 0.4 mg PO DAILY [facility] Last Admin: 01/04/17 09:59 Dose: 0.4 mg - Labs Labs: 01/06/17 08:20 01/06/17 08:20 PT 14.1 SECONDS (9.7-12.2) H 01/03/17 14:50 INR 1.3 01/03/17 14:50 APTT 22 SECONDS (21-34) 01/03/17 14:50 - Constitutional Appears: Well - Head Exam Head Exam: ATRAUMATIC, NORMAL INSPECTION, NORMOCEPHALIC - Eye Exam Eye Exam: EOMI, Normal appearance, PERRL Pupil Exam: NORMAL ACCOMODATION, PERRL - ENT Exam ENT Exam: Mucous Membranes Moist, Normal Exam - Neck Exam Neck Exam: Full ROM, Normal Inspection. absent: Lymphadenopathy - Respiratory Exam Respiratory Exam: Decreased Breath Sounds - Cardiovascular Exam Cardiovascular Exam: REGULAR RHYTHM, +S1, +S2 - GI/Abdominal Exam GI & Abdominal Exam: Soft, Diminished Bowel Sounds - Rectal Exam Rectal Exam: Deferred
[2017-01-06] MEDS ORDERED: Iodixanol 320 MG/ML 100 ML BOTTLE IV ONE (19:27)
--- NOTE | 2017-01-06 21:14 | CT ---
EXAM: CT Abdomen Without Intravenous Contrast EXAM DATE/TIME: Exam ordered 01/06/2017 4:40 PM CLINICAL HISTORY: 61 years old, male; Condition or disease; Liver condition; Cirrhosis; Additional info: Evaluate cirrhosis, characterize hepatic lesion TECHNIQUE: Axial computed tomography images of the abdomen without intravenous contrast. All CT scans at this facility use one or more dose reduction techniques, viz.: automated exposure control; ma/kV adjustment per patient size (including targeted exams where dose is matched to indication; i.e. head); or iterative reconstruction technique. Coronal and sagittal reformatted images were created and reviewed. COMPARISON: No relevant prior studies available. FINDINGS: Lower thorax: There is a bulla in the right lower lobe near the lung base. Thin reticular pleural based opacity in the right middle lobe suggests scar. Hypoventilatory changes are seen in the dependent portion of both lung bases. There are small bilateral pleural effusions, left greater than right. There is a small hiatal hernia. Liver: There is a 1.4 cm low-density lesion in the anterior inferior segment of the right lobe of the liver. On the arterial phase of the examination, nodular enhancement is noted along the middle periphery of the mass.. On the portal venous phase there is gradual enhancement of the mass.. Gallbladder and bile ducts: Unremarkable. No calcified stones. No ductal dilation. Pancreas: Unremarkable. No ductal dilation. Spleen: Calcifications are noted of the splenic capsule. The spleen measures 14.4 cm in craniocaudal span. Adrenals: Unremarkable. No mass. Kidneys and ureters: There is mild edema noted within the perinephric space bilaterally. Mild fullness of the central collecting systems bilaterally with mild hydroureter proximally. The distal ureters are normal in caliber. No obstructing stones. Stomach and bowel: Unremarkable. No obstruction. No mucosal thickening. Appendix: No findings to suggest acute appendicitis. Intraperitoneal space: There is mild stranding of the perivesicular fat within the pelvis. No free air. No significant fluid collection. Bones/joints: Degenerative changes are noted of the thoracolumbar spine in the lumbar spine No acute fracture. No dislocation. Soft tissues: There is a small left inguinal hernia containing fat. Vasculature: See above. Lymph nodes: Unremarkable. No enlarged lymph nodes. Tubes, lines and devices: There is a Dixon noted within the bladder. Air is noted within the bladder related to the Dixon. Other findings: The prostate measures 4.1 x 4.8 by 5.2 cm. IMPRESSION: 1. 1.4 cm hemangioma within the liver. 2. Splenomegaly with calcification of the capsule of the spleen. 3. Mild fullness of the central collecting systems bilaterally. The proximal two thirds of each ureter is dilated but distally the ureters are normal. There is mild stranding of the perivesicular fat. The significance is uncertain. 4. Very small bilateral pleural effusions.
[2017-01-07] MEDS: Ciprofloxacin 400mg/200ml D5W 400 MG/200 ML BAG IVPB SCH ×2 (02:30→14:38)
[2017-01-07] MEDS: Levothyroxine 75 MCG TAB PO SCH (05:55)
[2017-01-07 08:10] LABS: INR 1.2
[2017-01-07 08:13] LABS: HEMATOCRIT 25.4 % (35.0-51.0); MEAN CELL VOLUME 69.8 fL (80.0-94.0); MEAN CORPUSCULAR HEMOGLOBIN 23.7 pg (27.0-31.0); MEAN PLATELET VOLUME 9.7 fL (7.2-11.7); RED CELL DISTRIBUTION WIDTH 16.2 % (11.5-14.5); WHITE BLOOD COUNT 4.9 K/uL (4.8-10.8)
[2017-01-07] MEDS: (Novolog) Insulin Aspart, Recombinant 100 u/ml 10 ml vial SC SCH ×4 (08:19→22:02)
[2017-01-07 08:28] LABS: CHLORIDE 104 mmol/L (98-107); SODIUM 135 mmol/L (132-148)
[2017-01-07 08:30] LABS: AST/SGOT 22 U/L (17-59); BILIRUBIN,TOTAL 0.8 mg/dL (0.2-1.3); CARBON DIOXIDE 23 mmol/L (22-30); GFR AFRICAN-AMERICAN > 60
[2017-01-07 08:31] LABS: ALKALINE PHOSPHATASE 84 U/L (38-126); ALT/SGPT 57 U/L (21-72); BLOOD UREA NITROGEN 7 mg/dL (9-20); CALCIUM 8.8 mg/dl (8.6-10.4); GLUCOSE,RANDOM 116 mg/dL (75-110); PHOSPHOROUS 2.7 mg/dL (2.5-4.5)
[2017-01-07 08:32] LABS: MAGNESIUM 1.6 mg/dL (1.6-2.3)
[2017-01-07 08:33] LABS: ALB/GLOB RATIO 0.9 (1.0-2.1)
--- NOTE | 2017-01-07 09:19 | CP.PCM.PN ---
<Teresa Rueda - Last Filed: 01/07/17 09:13> Subjective - Date & Time of Evaluation Date of Evaluation: 01/07/17 Time of Evaluation: 09:13 - Subjective Subjective: Gastroenterology Fellow/PGY5 Progress Note Patient states he did not sleep well overnight. Tolerated heart healthy diet. He notes formed bowel movement overnight without melena or hematochezia. A 12- point review of systems negative except for as above. Objective - Vital Signs/Intake and Output Vital Signs (last 24 hours): Temp Pulse Resp BP Pulse Ox 98.5 F 71 20 138/74 97 01/07/17 07:44 01/07/17 07:44 01/07/17 07:44 01/07/17 07:44 01/07/17 07:44 Intake and Output: 01/07/17 01/07/17 06:59 18:59 Intake Total 1315 Output Total 1900 Balance -585 - Medications Medications: Current Medications Acetaminophen (Tylenol 325mg Tab) 650 mg PO Q6 PRN PRN Reason: Fever >100.4 F Last Admin: 01/04/17 20:27 Dose: 650 mg Aspirin (Ecotrin) 81 mg PO DAILY [facility] Last Admin: 01/06/17 11:34 Dose: 81 mg Enoxaparin Sodium (Lovenox) 40 mg SC DAILY [facility] Last Admin: 01/06/17 11:43 Dose: Not Given Famotidine (Pepcid) 40 mg PO DAILY [facility] Last Admin: 01/06/17 11:35 Dose: 40 mg Hydrochlorothiazide (Hydrodiuril) 25 mg PO DAILY [facility] Last Admin: 01/04/17 09:59 Dose: Not Given Ciprofloxacin (Cipro 400mg/200ml Dsw) 400 mg in 200 mls @ 133 mls/hr IVPB Q12H [facility] Last Admin: 01/07/17 02:30 Dose: 133 mls/hr Cefepime HCl 1 gm/ Dextrose 50 mls @ 100 mls/hr IVPB Q8H [facility] Last Admin: 01/07/17 04:00 Dose: 100 mls/hr Insulin Aspart (Novolog) 0 unit SC ACHS [facility] PRN Reason: Protocol Last Admin: 01/07/17 08:19 Dose: Not Given Lactulose (Enulose) 20 gm PO BID [facility] Levothyroxine Sodium (Synthroid) 75 mcg PO DAILY@0630 [facility] Last Admin: 01/07/17 05:55 Dose: 75 mcg Losartan Potassium (Cozaar) 100 mg PO DAILY [facility] Last Admin: 01/04/17 09:59 Dose: Not Given Potassium Phos/Sodium Phos (Neutra-Phos) 1 pkt PO TID [facility] Last Admin: 01/06/17 17:59 Dose: 1 pkt Propranolol HCl (Inderal La) 60 mg PO DAILY [facility] Last Admin: 01/04/17 09:59 Dose: Not Given Tamsulosin HCl (Flomax) 0.4 mg PO DAILY [facility] Last Admin: 01/04/17 09:59 Dose: 0.4 mg - Labs Labs: 01/07/17 07:37 01/07/17 07:37 PT 13.0 SECONDS (9.7-12.2) H 01/07/17 07:37 INR 1.2 01/07/17 07:37 APTT 22 SECONDS (21-34) 01/03/17 14:50 - Constitutional Appears: Non-toxic, No Acute Distress, Chronically Ill - Head Exam Head Exam: ATRAUMATIC, NORMOCEPHALIC - Eye Exam Eye Exam: EOMI, PERRL Pupil Exam: PERRL. absent: Miosis, Mydriatic - ENT Exam ENT Exam: Mucous Membranes Moist, Normal Oropharynx - Neck Exam Neck Exam: Full ROM, Normal Inspection - Respiratory Exam Respiratory Exam: Clear to Ausculation Bilateral. absent: Rales, Rhonchi, Wheezes - Cardiovascular Exam Cardiovascular Exam: RRR, +S1, +S2. absent: Gallop, Rubs - GI/Abdominal Exam GI & Abdominal Exam: Soft, Tenderness, Normal Bowel Sounds, Organomegaly. absent: Distended, Firm, Guarding, Rigid, Rebound Additional comments: suprapubic tenderness to palpation - Extremities Exam Extremities Exam: Normal Inspection, Pedal Edema - Neurological Exam Neurological Exam: Alert, Awake - Psychiatric Exam Psychiatric exam: Normal Affect, Normal Mood - Skin Skin Exam: Dry, Intact, Normal Color, Warm Assessment and Plan - Assessment and Plan (Free Text) Assessment: 61 year old male with history of CAD, Diabetes, Hypertension, Hypothyroidism, sickle cell trait, cirrhosis (unknown cause) presenting after pulling out George at home. Active treatment of sepsis 2/2 R. ornithinolytica UTI/pyelonephritis complicated by E. coli Bacteremia. CT A/P imaging revealed a right hepatic 2cm lesion present since 01/[address] [facility] as a hemangioma on last imaging 01/2016. Prior EGD/colonoscopy at [place] endorsed to show Gastritis, no varices, and no polyps. Plan: >MELD 24 >CT liver protocol-1.4cm right hepatic hemangioma >normal AFP >Ultrasound-no ascites >s/p 1U pRBC >H/H stable >rectal-brown stool >will obtain records from [place] on prior EGD/colonoscopy 2 years ago >will benefit from elective EGD for variceal screening, likely elective based on prior EGD records and no active signs of GI blood loss >will follow clinical course <Aquiles Jurado - Last Filed: 01/07/17 14:18> Objective - Vital Signs/Intake and Output Vital Signs (last 24 hours): Temp Pulse Resp BP Pulse Ox 98.5 F 71 20 138/74 97 01/07/17 07:44 01/07/17 07:44 01/07/17 07:44 01/07/17 07:44 01/07/17 07:44 Intake and Output: 01/07/17 01/07/17 06:59 18:59 Intake Total 1315 Output Total 1900 Balance -585 - Medications Medications: Current Medications Acetaminophen (Tylenol 325mg Tab) 650 mg PO Q6 PRN PRN Reason: Fever >100.4 F Last Admin: 01/04/17 20:27 Dose: 650 mg Acyclovir (Zovirax) 800 mg PO 5XD [facility] Last Admin: 01/07/17 13:17 Dose: 800 mg Ascorbic Acid (Vitamin C 500 Mg Tab) 500 mg PO DAILY [facility] Aspirin (Ecotrin) 81 mg PO DAILY [facility] Last Admin: 01/07/17 09:56 Dose: 81 mg Enoxaparin Sodium (Lovenox) 40 mg SC DAILY [facility] Last Admin: 01/07/17 09:55 Dose: 40 mg Famotidine (Pepcid) 40 mg PO DAILY [facility] Last Admin: 01/07/17 09:56 Dose: 40 mg Hydrochlorothiazide (Hydrodiuril) 25 mg PO DAILY [facility] Last Admin: 01/04/17 09:59 Dose: Not Given Ciprofloxacin (Cipro 400mg/200ml Dsw) 400 mg in 200 mls @ 133 mls/hr IVPB Q12H [facility] Last Admin: 01/07/17 02:30 Dose: 133 mls/hr Cefepime HCl 1 gm/ Dextrose 50 mls @ 100 mls/hr IVPB Q8H [facility] Last Admin: 01/07/17 12:20 Dose: 100 mls/hr Insulin Aspart (Novolog) 0 unit SC ACHS [facility] PRN Reason: Protocol Last Admin: 01/07/17 12:21 Dose: Not Given Lactulose (Enulose) 20 gm PO BID [facility] Last Admin: 01/07/17 09:55 Dose: 20 gm Levothyroxine Sodium (Synthroid) 75 mcg PO DAILY@0630 [facility] Last Admin: 01/07/17 05:55 Dose: 75 mcg Losartan Potassium (Cozaar) 100 mg PO DAILY [facility] Last Admin: 01/04/17 09:59 Dose: Not Given Potassium Phos/Sodium Phos (Neutra-Phos) 1 pkt PO TID [facility] Last Admin: 01/07/17 13:17 Dose: 1 pkt Propranolol HCl (Inderal La) 60 mg PO DAILY [facility] Last Admin: 01/04/17 09:59 Dose: Not Given Saliva Substitute (First Magic Mouthwash) 5 ml PO QID [facility] Last Admin: 01/07/17 13:17 Dose: 5 ml Tamsulosin HCl (Flomax) 0.4 mg PO DAILY [facility] Last Admin: 01/04/17 09:59 Dose: 0.4 mg - Labs Labs: 01/07/17 07:37 01/07/17 07:37 PT 13.0 SECONDS (9.7-12.2) H 01/07/17 07:37 INR 1.2 01/07/17 07:37 APTT 22 SECONDS (21-34) 01/03/17 14:50 Attending/Attestation - Attestation I have personally seen and examined this patient.: Yes I have fully participated in the care of the patient.: Yes I have reviewed all pertinent clinical information, including history, physical exam and plan: Yes Notes (Text): 01/07/17 14:14 I have seen and examined patient with GI fellow. No acute events overnight, he is seen resting in bed comfortably. He denies abdominal pain, nausea, vomiting , fever/chills. Tolerating PO diet without difficulty. Review of vitals from today are normal. DM CAD Cirrhosis, unclear etiology HTN Hypothyroidism Urosepsis, s/p george removal Anemia - Low sodium diet as tolerated - H/H stable, s/p PRBC transfusion, continue to monitor - CT liver reviewed by me showing stable 1.6 cm hemangioma, no further workup indicated - Awaiting on endoscopic records from [facility], if indicated patient would benefit from EGD for variceal screening given progressive anemia, potentially repeat colonoscopy - Following hospital discharge patient to follow up at [facility] liver clinic for management of cirrhosis - Will continue to monitor patient clinical course
--- NOTE | 2017-01-07 09:19 | CP.PCM.PN ---
Subjective - Date & Time of Evaluation Date of Evaluation: 01/07/17 Time of Evaluation: 07:55 - Subjective Subjective: PGY3 Medicine Note - Dr. Dyana Downing's service: Patient seen and examined at bedside this AM. Patient reports a feeling a heaviness in his flanks. Patient denies fever, chills, chest pain, SOB, abdominal pain, nausea, vomiting, diarrhea. Patient complaining of loud and unhygeinic roommate. Objective - Vital Signs/Intake and Output Vital Signs (last 24 hours): Temp Pulse Resp BP Pulse Ox 98.5 F 71 20 138/74 97 01/07/17 07:44 01/07/17 07:44 01/07/17 07:44 01/07/17 07:44 01/07/17 07:44 Intake and Output: 01/07/17 01/07/17 06:59 18:59 Intake Total 1315 Output Total 1900 Balance -585 - Medications Medications: Current Medications Acetaminophen (Tylenol 325mg Tab) 650 mg PO Q6 PRN PRN Reason: Fever >100.4 F Last Admin: 01/04/17 20:27 Dose: 650 mg Aspirin (Ecotrin) 81 mg PO DAILY [facility] Last Admin: 01/06/17 11:34 Dose: 81 mg Enoxaparin Sodium (Lovenox) 40 mg SC DAILY [facility] Last Admin: 01/06/17 11:43 Dose: Not Given Famotidine (Pepcid) 40 mg PO DAILY [facility] Last Admin: 01/06/17 11:35 Dose: 40 mg Hydrochlorothiazide (Hydrodiuril) 25 mg PO DAILY [facility] Last Admin: 01/04/17 09:59 Dose: Not Given Ciprofloxacin (Cipro 400mg/200ml Dsw) 400 mg in 200 mls @ 133 mls/hr IVPB Q12H [facility] Last Admin: 01/07/17 02:30 Dose: 133 mls/hr Cefepime HCl 1 gm/ Dextrose 50 mls @ 100 mls/hr IVPB Q8H [facility] Last Admin: 01/07/17 04:00 Dose: 100 mls/hr Insulin Aspart (Novolog) 0 unit SC ACHS [facility] PRN Reason: Protocol Last Admin: 01/07/17 08:19 Dose: Not Given Lactulose (Enulose) 20 gm PO BID [facility] Levothyroxine Sodium (Synthroid) 75 mcg PO DAILY@0630 [facility] Last Admin: 01/07/17 05:55 Dose: 75 mcg Losartan Potassium (Cozaar) 100 mg PO DAILY [facility] Last Admin: 01/04/17 09:59 Dose: Not Given Potassium Phos/Sodium Phos (Neutra-Phos) 1 pkt PO TID [facility] Last Admin: 01/06/17 17:59 Dose: 1 pkt Propranolol HCl (Inderal La) 60 mg PO DAILY [facility] Last Admin: 01/04/17 09:59 Dose: Not Given Tamsulosin HCl (Flomax) 0.4 mg PO DAILY [facility] Last Admin: 01/04/17 09:59 Dose: 0.4 mg - Labs Labs: 01/07/17 07:37 01/07/17 07:37 PT 13.0 SECONDS (9.7-12.2) H 01/07/17 07:37 INR 1.2 01/07/17 07:37 APTT 22 SECONDS (21-34) 01/03/17 14:50 - Constitutional Appears: Non-toxic, No Acute Distress - Head Exam Head Exam: NORMAL INSPECTION - Eye Exam Eye Exam: EOMI - ENT Exam ENT Exam: Mucous Membranes Moist - Respiratory Exam Respiratory Exam: Clear to Ausculation Bilateral, Rales, NORMAL BREATHING PATTERN. absent: Rhonchi, Wheezes - Cardiovascular Exam Cardiovascular Exam: REGULAR RHYTHM, +S1, +S2, Murmur. absent: Gallop, Rubs - GI/Abdominal Exam GI & Abdominal Exam: Soft, Normal Bowel Sounds. absent: Tenderness - Extremities Exam Extremities Exam: absent: Pedal Edema - Neurological Exam Neurological Exam: Alert, Awake, Oriented x3 - Psychiatric Exam Psychiatric exam: Normal Affect, Normal Mood - Skin Skin Exam: Normal Color, Warm Assessment and Plan - Assessment and Plan (Free Text) Assessment: UTI Urine culture 01/03 positive for Raoultella Ornithinolytica resistant to ampicillin, sensitive to cipro Lactic Acid 1.4 Meropenem 1gm IVPB Q8H 01/04 one dose (has been discontinued) Ciprofloxacin 400mg IVPB Q12H started 01/05, day 3 ID consult - Dr. Nieto - help appreciated Bacteremia E.Coli in one blood culture on 01/03 Biprofloxacin 400mg IVPB Q12H started 01/05, day 3 ID consult - Dr. Nieto - help appreciated Patient will need at least 5 days of IV Abx Anemia Hgb 8.6 today from 7.4, s/p 1 unit pRBCs on 01/06 F/U CBC in AM Hematology consult - Dr. Bruce - thania appreciated - awaiting call back Ferritin 121 B12 848 Folate 17.3 HIV and hepatitis negative F/U reticulocyte count and stool OB Thrombocytopenia Likely secondary to combination of infection and splenic sequestration Platelets 61 today F/U CBC in AM F/U serotonin release assay and Heparin Ab Hematology consult - Dr. Bruce - thania appreciated - awaiting call back Liver Lesion Seen on 01/03 Abdomen/Pelvis CT AFP 1.5 Ca19-9 <1.4 Ammonia 15 GI consult - Dr. Jurado - thania appreciated Liver CT - 1.4cm hemangioma within liver ( seen on CTat [facility] in 01/2016 at which time it was 1.5cm); splenomegaly with calcification of capsule of spleen; mild fullness of central collecting system bilaterally; proximal two thirds of each ureter is dilated but distally the ureters are normal; mild stranding of perivesicular fat; very small bilateral pleural effusions ( please see full report) BPH with hydronephrosis Dixon catheter in place Per urology consult, Dr. De Paz (help appreciated), patient is to follow up with his urologist at [facility] who has surgery planned for January Flomax on hold HTN Continue home HCTZ 25mg PO daily and Losartan 100mg PO daily and Propanolol 60mg PO daily (on hold) BP controlled DM Holding home Metformin Lantus ISS Monitor glucose Hypothyroidism Continue home synthroid 75mcg PO daily Hypophosphatemia Resolved Neutra-Phos TID started 01/06 Prophylactic Measure Pepcid 40mg PO daily Lovenox 40mg SC daily All medical management per Dr. Dyana Downing
[2017-01-07 09:52] LABS: EOS # 0.1 K/uL (0.0-0.7); LYMPH # 0.6 K/uL (1.0-4.3); MONO # 0.3 K/uL (0.0-0.8)
[2017-01-07] MEDS: Enoxaparin 40 mg Syringe SC SCH (09:55)
[2017-01-07] MEDS: Potassium & Sodium Phosphate PO SCH ×3 (09:56→17:20)
--- NOTE | 2017-01-07 11:43 | CP.PCM.PN ---
Subjective - Date & Time of Evaluation Date of Evaluation: 01/07/17 Time of Evaluation: 09:00 - Subjective Subjective: afebrile iv rx in progress less weak GI and ONc on board Objective - Vital Signs/Intake and Output Vital Signs (last 24 hours): Temp Pulse Resp BP Pulse Ox 98.5 F 71 20 138/74 97 01/07/17 07:44 01/07/17 07:44 01/07/17 07:44 01/07/17 07:44 01/07/17 07:44 Intake and Output: 01/07/17 01/07/17 06:59 18:59 Intake Total 1315 Output Total 1900 Balance -585 - Medications Medications: Current Medications Acetaminophen (Tylenol 325mg Tab) 650 mg PO Q6 PRN PRN Reason: Fever >100.4 F Last Admin: 01/04/17 20:27 Dose: 650 mg Acyclovir (Zovirax) 800 mg PO 5XD [facility] Ascorbic Acid (Vitamin C 500 Mg Tab) 500 mg PO DAILY [facility] Aspirin (Ecotrin) 81 mg PO DAILY [facility] Last Admin: 01/07/17 09:56 Dose: 81 mg Enoxaparin Sodium (Lovenox) 40 mg SC DAILY [facility] Last Admin: 01/07/17 09:55 Dose: 40 mg Famotidine (Pepcid) 40 mg PO DAILY [facility] Last Admin: 01/07/17 09:56 Dose: 40 mg Hydrochlorothiazide (Hydrodiuril) 25 mg PO DAILY [facility] Last Admin: 01/04/17 09:59 Dose: Not Given Ciprofloxacin (Cipro 400mg/200ml Dsw) 400 mg in 200 mls @ 133 mls/hr IVPB Q12H [facility] Last Admin: 01/07/17 02:30 Dose: 133 mls/hr Cefepime HCl 1 gm/ Dextrose 50 mls @ 100 mls/hr IVPB Q8H [facility] Last Admin: 01/07/17 04:00 Dose: 100 mls/hr Insulin Aspart (Novolog) 0 unit SC ACHS [facility] PRN Reason: Protocol Last Admin: 01/07/17 08:19 Dose: Not Given Lactulose (Enulose) 20 gm PO BID [facility] Last Admin: 01/07/17 09:55 Dose: 20 gm Levothyroxine Sodium (Synthroid) 75 mcg PO DAILY@0630 [facility] Last Admin: 01/07/17 05:55 Dose: 75 mcg Losartan Potassium (Cozaar) 100 mg PO DAILY [facility] Last Admin: 01/04/17 09:59 Dose: Not Given Potassium Phos/Sodium Phos (Neutra-Phos) 1 pkt PO TID [facility] Last Admin: 01/07/17 09:56 Dose: 1 pkt Propranolol HCl (Inderal La) 60 mg PO DAILY [facility] Last Admin: 01/04/17 09:59 Dose: Not Given Tamsulosin HCl (Flomax) 0.4 mg PO DAILY [facility] Last Admin: 01/04/17 09:59 Dose: 0.4 mg - Labs Labs: 01/07/17 07:37 01/07/17 07:37 PT 13.0 SECONDS (9.7-12.2) H 01/07/17 07:37 INR 1.2 01/07/17 07:37 APTT 22 SECONDS (21-34) 01/03/17 14:50 - Constitutional Appears: Non-toxic, Chronically Ill - Head Exam Head Exam: NORMOCEPHALIC - Eye Exam Eye Exam: absent: Scleral icterus - ENT Exam ENT Exam: Mucous Membranes Dry, Normal External Ear Exam - Neck Exam Neck Exam: absent: Lymphadenopathy - Respiratory Exam Respiratory Exam: Decreased Breath Sounds - Cardiovascular Exam Cardiovascular Exam: REGULAR RHYTHM - GI/Abdominal Exam GI & Abdominal Exam: Distended, Soft - Rectal Exam Rectal Exam: Deferred - Exam Exam: NORMAL INSPECTION - Extremities Exam Extremities Exam: absent: Pedal Edema - Back Exam Back Exam: absent: CVA tenderness (L), CVA tenderness (R) - Neurological Exam Neurological Exam: Alert, Awake, Oriented x3 Assessment and Plan (1) Sepsis Status: Acute (2) BPH (benign prostatic hyperplasia) Status: Acute (3) UTI (urinary tract infection) Status: Acute (4) Septic shock due to Escherichia coli Status: Acute (5) Septic shock due to Escherichia coli Status: Acute
[2017-01-07] MEDS: Mag&Al/Simet/Diphen/Lido 237 ML KIT PO SCH ×3 (13:17→22:02)
--- NOTE | 2017-01-07 17:10 | CARD ---
APPROVED REPORT EXAM: Two-dimensional and M-mode echocardiogram with Doppler and color Doppler. Other Information Quality : Rhythm : NSR INDICATION Murmur septic shock,on chemo, M-Mode DIMENSIONS RVDd1.56 (2.1-3.2cm)Left Atrium (MM)3.29 (2.5-4.0cm) IVSd0.85 (0.7-1.1cm)Aortic Root3.35 (2.2-3.7cm) LVDd4.85 (4.0-5.6cm)Aortic Cusp Exc.2.28 (1.5-2.0cm) PWd1.20 (0.7-1.1cm)FS (%) 49 % LVDs2.47 (2.0-3.8cm)LVEF (%)80 (>50%) Mitral Valve MV E Rycwsdxy54.1cm/sMV A Bpnfojyb19.0cm/sE/A ratio0.9 TDI E/Lateral E'0.0E/Medial E'0.0 Tricuspid Valve TR Peak Sthpmsgm423rz/sTR Peak Gr.[id number] LEFT VENTRICLE The left ventricle is normal size. There is mild concentric left ventricular hypertrophy. The left ventricular function is normal. The left ventricular ejection fraction is within the normal range. Transmitral Doppler flow pattern is abnormal. RIGHT VENTRICLE The right ventricle is normal size. There is normal right ventricular wall thickness. ATRIA The left atrium size is normal. The right atrium size is normal. AORTIC VALVE The aortic valve is normal in structure. MITRAL VALVE Mitral regurgitation is trace. TRICUSPID VALVE There is trace to mild tricuspid regurgitation. <Conclusion> Normal LV systoli cfunction. LVH with diastolic dysfunction. Normal chamber size. Trace MR. Trace to mild TR.
--- NOTE | 2017-01-07 18:32 | CP.PCM.PN ---
Subjective - Date & Time of Evaluation Date of Evaluation: 01/07/17 Time of Evaluation: 07:20 - Subjective Subjective: clinically same Objective - Vital Signs/Intake and Output Vital Signs (last 24 hours): Temp Pulse Resp BP Pulse Ox 98.8 F 61 20 131/80 99 01/07/17 15:00 01/07/17 15:00 01/07/17 15:00 01/07/17 15:00 01/07/17 15:00 Intake and Output: 01/07/17 01/07/17 06:59 18:59 Intake Total 1315 650 Output Total 1900 900 Balance -585 -250 - Medications Medications: Current Medications Acetaminophen (Tylenol 325mg Tab) 650 mg PO Q6 PRN PRN Reason: Fever >100.4 F Last Admin: 01/04/17 20:27 Dose: 650 mg Acyclovir (Zovirax) 800 mg PO 5XD [facility] Last Admin: 01/07/17 17:16 Dose: 800 mg Ascorbic Acid (Vitamin C 500 Mg Tab) 500 mg PO DAILY [facility] Aspirin (Ecotrin) 81 mg PO DAILY [facility] Last Admin: 01/07/17 09:56 Dose: 81 mg Enoxaparin Sodium (Lovenox) 40 mg SC DAILY [facility] Last Admin: 01/07/17 09:55 Dose: 40 mg Famotidine (Pepcid) 40 mg PO DAILY [facility] Last Admin: 01/07/17 09:56 Dose: 40 mg Hydrochlorothiazide (Hydrodiuril) 25 mg PO DAILY [facility] Last Admin: 01/04/17 09:59 Dose: Not Given Ciprofloxacin (Cipro 400mg/200ml Dsw) 400 mg in 200 mls @ 133 mls/hr IVPB Q12H [facility] Last Admin: 01/07/17 14:38 Dose: 133 mls/hr Cefepime HCl 1 gm/ Dextrose 50 mls @ 100 mls/hr IVPB Q8H [facility] Last Admin: 01/07/17 12:20 Dose: 100 mls/hr Insulin Aspart (Novolog) 0 unit SC ACHS [facility] PRN Reason: Protocol Last Admin: 01/07/17 17:18 Dose: 1 unit Lactulose (Enulose) 20 gm PO BID [facility] Last Admin: 01/07/17 17:20 Dose: 20 gm Levothyroxine Sodium (Synthroid) 75 mcg PO DAILY@0630 [facility] Last Admin: 01/07/17 05:55 Dose: 75 mcg Losartan Potassium (Cozaar) 100 mg PO DAILY [facility] Last Admin: 01/04/17 09:59 Dose: Not Given Potassium Phos/Sodium Phos (Neutra-Phos) 1 pkt PO TID [facility] Last Admin: 01/07/17 17:20 Dose: 1 pkt Propranolol HCl (Inderal La) 60 mg PO DAILY [facility] Last Admin: 01/04/17 09:59 Dose: Not Given Saliva Substitute (First Magic Mouthwash) 5 ml PO QID [facility] Last Admin: 01/07/17 17:20 Dose: 5 ml Tamsulosin HCl (Flomax) 0.4 mg PO DAILY [facility] Last Admin: 01/04/17 09:59 Dose: 0.4 mg - Labs Labs: 01/07/17 07:37 01/07/17 07:37 PT 13.0 SECONDS (9.7-12.2) H 01/07/17 07:37 INR 1.2 01/07/17 07:37 APTT 22 SECONDS (21-34) 01/03/17 14:50 - Constitutional Appears: Well - Head Exam Head Exam: ATRAUMATIC, NORMAL INSPECTION, NORMOCEPHALIC - Eye Exam Eye Exam: EOMI, Normal appearance, PERRL Pupil Exam: NORMAL ACCOMODATION, PERRL - ENT Exam ENT Exam: Mucous Membranes Moist, Normal Exam - Neck Exam Neck Exam: Full ROM, Normal Inspection. absent: Lymphadenopathy - Respiratory Exam Respiratory Exam: Decreased Breath Sounds - Cardiovascular Exam Cardiovascular Exam: REGULAR RHYTHM, +S1, +S2 - GI/Abdominal Exam GI & Abdominal Exam: Soft, Diminished Bowel Sounds - Rectal Exam Rectal Exam: Deferred
--- NOTE | 2017-01-07 19:20 | CP.PCM.PN ---
Subjective - Date & Time of Evaluation Date of Evaluation: 01/06/17 Time of Evaluation: 17:00 - Subjective Subjective: Feeling better. Objective - Vital Signs/Intake and Output Vital Signs (last 24 hours): Temp Pulse Resp BP Pulse Ox 98.8 F 61 20 131/80 99 01/07/17 15:00 01/07/17 15:00 01/07/17 15:00 01/07/17 15:00 01/07/17 15:00 Intake and Output: 01/07/17 01/08/17 18:59 06:59 Intake Total 650 Output Total 900 Balance -250 - Medications Medications: Current Medications Acetaminophen (Tylenol 325mg Tab) 650 mg PO Q6 PRN PRN Reason: Fever >100.4 F Last Admin: 01/04/17 20:27 Dose: 650 mg Acyclovir (Zovirax) 800 mg PO 5XD [facility] Last Admin: 01/07/17 17:16 Dose: 800 mg Ascorbic Acid (Vitamin C 500 Mg Tab) 500 mg PO DAILY [facility] Aspirin (Ecotrin) 81 mg PO DAILY [facility] Last Admin: 01/07/17 09:56 Dose: 81 mg Enoxaparin Sodium (Lovenox) 40 mg SC DAILY [facility] Last Admin: 01/07/17 09:55 Dose: 40 mg Famotidine (Pepcid) 40 mg PO DAILY [facility] Last Admin: 01/07/17 09:56 Dose: 40 mg Hydrochlorothiazide (Hydrodiuril) 25 mg PO DAILY [facility] Last Admin: 01/04/17 09:59 Dose: Not Given Ciprofloxacin (Cipro 400mg/200ml Dsw) 400 mg in 200 mls @ 133 mls/hr IVPB Q12H [facility] Last Admin: 01/07/17 14:38 Dose: 133 mls/hr Cefepime HCl 1 gm/ Dextrose 50 mls @ 100 mls/hr IVPB Q8H [facility] Last Admin: 01/07/17 12:20 Dose: 100 mls/hr Insulin Aspart (Novolog) 0 unit SC ACHS [facility] PRN Reason: Protocol Last Admin: 01/07/17 17:18 Dose: 1 unit Lactulose (Enulose) 20 gm PO BID [facility] Last Admin: 01/07/17 17:20 Dose: 20 gm Levothyroxine Sodium (Synthroid) 75 mcg PO DAILY@0630 [facility] Last Admin: 01/07/17 05:55 Dose: 75 mcg Losartan Potassium (Cozaar) 100 mg PO DAILY [facility] Last Admin: 01/04/17 09:59 Dose: Not Given Potassium Phos/Sodium Phos (Neutra-Phos) 1 pkt PO TID [facility] Last Admin: 01/07/17 17:20 Dose: 1 pkt Propranolol HCl (Inderal La) 60 mg PO DAILY [facility] Last Admin: 01/04/17 09:59 Dose: Not Given Saliva Substitute (First Magic Mouthwash) 5 ml PO QID [facility] Last Admin: 01/07/17 17:20 Dose: 5 ml Tamsulosin HCl (Flomax) 0.4 mg PO DAILY [facility] Last Admin: 01/04/17 09:59 Dose: 0.4 mg - Labs Labs: 01/07/17 07:37 01/07/17 07:37 PT 13.0 SECONDS (9.7-12.2) H 01/07/17 07:37 INR 1.2 01/07/17 07:37 APTT 22 SECONDS (21-34) 01/03/17 14:50 - Head Exam Head Exam: ATRAUMATIC - Eye Exam Eye Exam: Normal appearance - ENT Exam ENT Exam: Mucous Membranes Dry - Respiratory Exam Respiratory Exam: NORMAL BREATHING PATTERN - Cardiovascular Exam Cardiovascular Exam: +S1, +S2 - GI/Abdominal Exam GI & Abdominal Exam: Normal Bowel Sounds - Extremities Exam Extremities Exam: Normal Inspection Assessment and Plan (1) Thrombocytopenia Assessment & Plan: suspect sepsis related HIT w/u sent; hold heparin/lovenox for now HIV and hepatitis negative Status: Acute (2) Anemia Assessment & Plan: chronic disease Status: Acute (3) Liver lesion Assessment & Plan: ultrasound of the abdomen AFP and CA 19-9 Status: Acute (4) Renal lesion Assessment & Plan: abdominal ultrasound Status: Acute
--- NOTE | 2017-01-07 19:22 | CP.PCM.PN ---
Subjective - Date & Time of Evaluation Date of Evaluation: 01/07/17 Time of Evaluation: 19:00 - Subjective Subjective: Feeling better Objective - Vital Signs/Intake and Output Vital Signs (last 24 hours): Temp Pulse Resp BP Pulse Ox 98.8 F 61 20 131/80 99 01/07/17 15:00 01/07/17 15:00 01/07/17 15:00 01/07/17 15:00 01/07/17 15:00 Intake and Output: 01/07/17 01/08/17 18:59 06:59 Intake Total 650 Output Total 900 Balance -250 - Medications Medications: Current Medications Acetaminophen (Tylenol 325mg Tab) 650 mg PO Q6 PRN PRN Reason: Fever >100.4 F Last Admin: 01/04/17 20:27 Dose: 650 mg Acyclovir (Zovirax) 800 mg PO 5XD [facility] Last Admin: 01/07/17 17:16 Dose: 800 mg Ascorbic Acid (Vitamin C 500 Mg Tab) 500 mg PO DAILY [facility] Aspirin (Ecotrin) 81 mg PO DAILY [facility] Last Admin: 01/07/17 09:56 Dose: 81 mg Enoxaparin Sodium (Lovenox) 40 mg SC DAILY [facility] Last Admin: 01/07/17 09:55 Dose: 40 mg Famotidine (Pepcid) 40 mg PO DAILY [facility] Last Admin: 01/07/17 09:56 Dose: 40 mg Hydrochlorothiazide (Hydrodiuril) 25 mg PO DAILY [facility] Last Admin: 01/04/17 09:59 Dose: Not Given Ciprofloxacin (Cipro 400mg/200ml Dsw) 400 mg in 200 mls @ 133 mls/hr IVPB Q12H [facility] Last Admin: 01/07/17 14:38 Dose: 133 mls/hr Cefepime HCl 1 gm/ Dextrose 50 mls @ 100 mls/hr IVPB Q8H [facility] Last Admin: 01/07/17 12:20 Dose: 100 mls/hr Insulin Aspart (Novolog) 0 unit SC ACHS [facility] PRN Reason: Protocol Last Admin: 01/07/17 17:18 Dose: 1 unit Lactulose (Enulose) 20 gm PO BID [facility] Last Admin: 01/07/17 17:20 Dose: 20 gm Levothyroxine Sodium (Synthroid) 75 mcg PO DAILY@0630 [facility] Last Admin: 01/07/17 05:55 Dose: 75 mcg Losartan Potassium (Cozaar) 100 mg PO DAILY [facility] Last Admin: 01/04/17 09:59 Dose: Not Given Potassium Phos/Sodium Phos (Neutra-Phos) 1 pkt PO TID [facility] Last Admin: 01/07/17 17:20 Dose: 1 pkt Propranolol HCl (Inderal La) 60 mg PO DAILY [facility] Last Admin: 01/04/17 09:59 Dose: Not Given Saliva Substitute (First Magic Mouthwash) 5 ml PO QID [facility] Last Admin: 01/07/17 17:20 Dose: 5 ml Tamsulosin HCl (Flomax) 0.4 mg PO DAILY [facility] Last Admin: 01/04/17 09:59 Dose: 0.4 mg - Labs Labs: 01/07/17 07:37 01/07/17 07:37 PT 13.0 SECONDS (9.7-12.2) H 01/07/17 07:37 INR 1.2 01/07/17 07:37 APTT 22 SECONDS (21-34) 01/03/17 14:50 - Head Exam Head Exam: ATRAUMATIC - Eye Exam Eye Exam: Normal appearance - ENT Exam ENT Exam: Mucous Membranes Dry - Respiratory Exam Respiratory Exam: NORMAL BREATHING PATTERN - Cardiovascular Exam Cardiovascular Exam: +S1, +S2 - GI/Abdominal Exam GI & Abdominal Exam: Normal Bowel Sounds - Extremities Exam Extremities Exam: Normal Inspection Assessment and Plan (1) Thrombocytopenia Assessment & Plan: improving sepsis related splenomegaly noted; ?splenic sequestration Status: Acute (2) Anemia Assessment & Plan: chronic disease Status: Acute (3) Liver lesion Assessment & Plan: CT of liver consistent with hemangioma Status: Acute (4) Renal lesion Assessment & Plan: recommend renal ultrasound Status: Acute
[2017-01-08] MEDS: Ciprofloxacin 400mg/200ml D5W 400 MG/200 ML BAG IVPB SCH ×2 (02:14→14:28)
[2017-01-08] MEDS: Levothyroxine 75 MCG TAB PO SCH (05:32)
[2017-01-08] MEDS: (Novolog) Insulin Aspart, Recombinant 100 u/ml 10 ml vial SC SCH ×4 (07:38→21:34)
[2017-01-08 08:06] LABS: BASO % 0.8 % (0.0-2.0); EOS # 0.2 K/uL (0.0-0.7); EOS % 4.1 % (0.0-4.0); HEMATOCRIT 24.6 % (35.0-51.0); LYMPH # 0.8 K/uL (1.0-4.3); MEAN CELL VOLUME 69.4 fL (80.0-94.0); MEAN CORPUSCULAR HEMOGLOBIN 23.7 pg (27.0-31.0); MEAN CORPUSCULAR HGB CONC 34.2 g/dL (33.0-37.0); MEAN PLATELET VOLUME 9.4 fL (7.2-11.7); MONO # 0.5 K/uL (0.0-0.8); MONO % 11.2 % (0.0-10.0); NRBC % 0.1 % (0.0-2.0); RED CELL DISTRIBUTION WIDTH 16.2 % (11.5-14.5); WHITE BLOOD COUNT 4.4 K/uL (4.8-10.8)
[2017-01-08 08:29] LABS: CHLORIDE 104 mmol/L (98-107)
[2017-01-08 08:30] LABS: POTASSIUM 3.8 mmol/L (3.6-5.2); SODIUM 135 mmol/L (132-148)
[2017-01-08 08:32] LABS: ALB/GLOB RATIO 0.9 (1.0-2.1); AST/SGOT 21 U/L (17-59); BILIRUBIN,TOTAL 0.8 mg/dL (0.2-1.3); CARBON DIOXIDE 23 mmol/L (22-30); GFR AFRICAN-AMERICAN > 60; TOTAL PROTEIN 6.8 g/dL (6.3-8.3)
[2017-01-08 08:33] LABS: ALKALINE PHOSPHATASE 79 U/L (38-126); ALT/SGPT 48 U/L (21-72); BLOOD UREA NITROGEN 6 mg/dL (9-20); CALCIUM 8.5 mg/dl (8.6-10.4); GLUCOSE,RANDOM 110 mg/dL (75-110)
[2017-01-08] MEDS: Enoxaparin 40 mg Syringe SC SCH (09:23)
[2017-01-08] MEDS: Potassium & Sodium Phosphate PO SCH ×3 (09:23→17:57)
[2017-01-08] MEDS: Propranolol 60 mg ER Cap PO SCH (09:25)
[2017-01-08] MEDS: Mag&Al/Simet/Diphen/Lido 237 ML KIT PO SCH ×4 (09:25→21:34)
[2017-01-08] MEDS ORDERED: Lactated Ringer's 1,000 ML IV ONE (11:05)
[2017-01-08] MEDS ORDERED: Propofol 10 mg/ml Inj (20 ML) ONE (11:06)
[2017-01-08] MEDS ORDERED: Midazolam 2 MG/2 ML VIAL ONE (11:06)
--- NOTE | 2017-01-08 11:23 | CP.PCM.PN ---
Subjective - Date & Time of Evaluation Date of Evaluation: 01/08/17 Time of Evaluation: 07:45 - Subjective Subjective: PGY3 Medicine Note - Dr. Dyana Downing's service: Patient seen and examined at bedside this AM. Patient feels well. Patient denies fever, chills, chest pain, SOB, abdominal pain, nausea, vomiting, diarrhea. Objective - Vital Signs/Intake and Output Vital Signs (last 24 hours): Temp Pulse Resp BP Pulse Ox 98.5 F 65 20 130/68 98 01/08/17 08:36 01/08/17 08:36 01/08/17 08:36 01/08/17 08:36 01/08/17 08:36 Intake and Output: 01/08/17 01/08/17 06:59 18:59 Intake Total 700 Output Total 1500 Balance -800 - Medications Medications: Current Medications Acetaminophen (Tylenol 325mg Tab) 650 mg PO Q6 PRN PRN Reason: Fever >100.4 F Last Admin: 01/04/17 20:27 Dose: 650 mg Acyclovir (Zovirax) 800 mg PO 5XD [facility] Last Admin: 01/08/17 07:36 Dose: 800 mg Ascorbic Acid (Vitamin C 500 Mg Tab) 500 mg PO DAILY [facility] Last Admin: 01/08/17 09:25 Dose: 500 mg Aspirin (Ecotrin) 81 mg PO DAILY [facility] Last Admin: 01/08/17 09:24 Dose: 81 mg Enoxaparin Sodium (Lovenox) 40 mg SC DAILY [facility] Last Admin: 01/08/17 09:23 Dose: 40 mg Famotidine (Pepcid) 40 mg PO DAILY [facility] Last Admin: 01/08/17 09:24 Dose: 40 mg Hydrochlorothiazide (Hydrodiuril) 25 mg PO DAILY [facility] Last Admin: 01/08/17 09:24 Dose: 25 mg Ciprofloxacin (Cipro 400mg/200ml Dsw) 400 mg in 200 mls @ 133 mls/hr IVPB Q12H [facility] Last Admin: 01/08/17 02:14 Dose: 133 mls/hr Cefepime HCl 1 gm/ Dextrose 50 mls @ 100 mls/hr IVPB Q8H [facility] Last Admin: 01/08/17 03:23 Dose: 100 mls/hr Insulin Aspart (Novolog) 0 unit SC ACHS [facility] PRN Reason: Protocol Last Admin: 01/08/17 07:38 Dose: Not Given Lactulose (Enulose) 20 gm PO BID [facility] Last Admin: 01/08/17 09:23 Dose: 20 gm Levothyroxine Sodium (Synthroid) 75 mcg PO DAILY@0630 [facility] Last Admin: 01/08/17 05:32 Dose: 75 mcg Losartan Potassium (Cozaar) 100 mg PO DAILY [facility] Last Admin: 01/08/17 09:23 Dose: 100 mg Potassium Phos/Sodium Phos (Neutra-Phos) 1 pkt PO TID [facility] Last Admin: 01/08/17 09:23 Dose: 1 pkt Propranolol HCl (Inderal La) 60 mg PO DAILY [facility] Last Admin: 01/08/17 09:25 Dose: 60 mg Saliva Substitute (First Magic Mouthwash) 5 ml PO QID [facility] Last Admin: 01/08/17 09:25 Dose: 5 ml Tamsulosin HCl (Flomax) 0.4 mg PO DAILY [facility] Last Admin: 01/08/17 09:24 Dose: 0.4 mg - Labs Labs: 01/08/17 07:39 01/08/17 07:39 PT 13.0 SECONDS (9.7-12.2) H 01/07/17 07:37 INR 1.2 01/07/17 07:37 APTT 22 SECONDS (21-34) 01/03/17 14:50 - Constitutional Appears: Non-toxic, No Acute Distress - Head Exam Head Exam: NORMAL INSPECTION - Eye Exam Eye Exam: EOMI - ENT Exam ENT Exam: Mucous Membranes Moist - Respiratory Exam Respiratory Exam: Clear to Ausculation Bilateral, NORMAL BREATHING PATTERN. absent: Rales, Rhonchi, Wheezes - Cardiovascular Exam Cardiovascular Exam: REGULAR RHYTHM, +S1, +S2, Murmur. absent: Gallop, Rubs - GI/Abdominal Exam GI & Abdominal Exam: Soft, Normal Bowel Sounds. absent: Tenderness - Extremities Exam Extremities Exam: absent: Pedal Edema - Neurological Exam Neurological Exam: Alert - Psychiatric Exam Psychiatric exam: Normal Affect, Normal Mood - Skin Skin Exam: Normal Color, Warm Assessment and Plan - Assessment and Plan (Free Text) Assessment: UTI Urine culture 01/03 positive for Raoultella Ornithinolytica resistant to ampicillin, sensitive to cipro Lactic Acid 1.4 Meropenem 1gm IVPB Q8H 01/04 one dose (has been discontinued) Ciprofloxacin 400mg IVPB Q12H started 01/05, day 3 ID consult - Dr. Nieto - thania appreciated Bacteremia E.Coli in one blood culture on 01/03 Different bacteria from UTI unsure about source of bacteria Ciprofloxacin 400mg IVPB Q12H started 01/05, day 4 Cefepime 1gm IVPB Q8H day 3 ID consult - Dr. Nieto - thania appreciated Patient will need at least 7 days of IV Abx per Dr. Nieto Anemia Hgb 8.6 today from 7.4, s/p 1 unit pRBCs on 01/06 F/U CBC in AM Hematology consult - Dr. Teo monteiro appreciated - awaiting call back Ferritin 121 B12 848 Folate 17.3 HIV and hepatitis negative F/U reticulocyte count and stool OB EGD today with GI, Dr. Jurado, help appreciated Thrombocytopenia Likely secondary to combination of infection and splenic sequestration Platelets 65 today F/U CBC in AM F/U serotonin release assay and Heparin Ab Hematology consult - Dr. Teo monteiro appreciated Liver Lesion Seen on 01/03 Abdomen/Pelvis CT AFP 1.5 Ca19-9 <1.4 Ammonia 15 GI consult - Dr. Jurado - thania appreciated Liver CT - 1.4cm hemangioma within liver ( seen on CTat [facility] in 01/2016 at which time it was 1.5cm); splenomegaly with calcification of capsule of spleen; mild fullness of central collecting system bilaterally; proximal two thirds of each ureter is dilated but distally the ureters are normal; mild stranding of perivesicular fat; very small bilateral pleural effusions ( please see full report) Kidney Lesion Seen on 01/03 Abd/Pelvis CT Not seen on complete abdominal US Diastolic CHF ECHO - normal LV systolic function; LVH with diastolic dysfunction, normal chamber size, trace MR, trace to mild TR (please see full report) already on ARB and propanolol for HTN BPH with hydronephrosis Dixon catheter in place Per urology consult, Dr. De Paz (help appreciated), patient is to follow up with his urologist at [facility] who has surgery planned for January Flomax on hold HTN Continue home HCTZ 25mg PO daily and Losartan 100mg PO daily and Propanolol 60mg PO daily (on hold) BP controlled DM Holding home Metformin Lantus ISS Monitor glucose Hypothyroidism Continue home synthroid 75mcg PO daily Hypophosphatemia Resolved Neutra-Phos TID started 01/06 Prophylactic Measure Pepcid 40mg PO daily Lovenox 40mg SC daily All medical management per Dr. Dyana Downing
--- NOTE | 2017-01-08 11:23 | CP.PCM.PN ---
Subjective - Date & Time of Evaluation Date of Evaluation: 01/08/17 Time of Evaluation: 11:20 - Subjective Subjective: Patient seen and examined, no acute events overnight. He denies abdominal pain , nausea, vomiting, fever/chills. Tolerating PO diet without difficulty. s/p EGD today showing no evidence of varices, +gastritis with antral erosions, no evidence of recent or active bleeding. Objective - Vital Signs/Intake and Output Vital Signs (last 24 hours): Temp Pulse Resp BP Pulse Ox 98.5 F 65 20 130/68 98 01/08/17 08:36 01/08/17 08:36 01/08/17 08:36 01/08/17 08:36 01/08/17 08:36 Intake and Output: 01/08/17 01/08/17 06:59 18:59 Intake Total 700 Output Total 1500 Balance -800 - Medications Medications: Current Medications Acetaminophen (Tylenol 325mg Tab) 650 mg PO Q6 PRN PRN Reason: Fever >100.4 F Last Admin: 01/04/17 20:27 Dose: 650 mg Acyclovir (Zovirax) 800 mg PO 5XD [facility] Last Admin: 01/08/17 07:36 Dose: 800 mg Ascorbic Acid (Vitamin C 500 Mg Tab) 500 mg PO DAILY [facility] Last Admin: 01/08/17 09:25 Dose: 500 mg Aspirin (Ecotrin) 81 mg PO DAILY [facility] Last Admin: 01/08/17 09:24 Dose: 81 mg Enoxaparin Sodium (Lovenox) 40 mg SC DAILY [facility] Last Admin: 01/08/17 09:23 Dose: 40 mg Famotidine (Pepcid) 40 mg PO DAILY [facility] Last Admin: 01/08/17 09:24 Dose: 40 mg Hydrochlorothiazide (Hydrodiuril) 25 mg PO DAILY [facility] Last Admin: 01/08/17 09:24 Dose: 25 mg Ciprofloxacin (Cipro 400mg/200ml Dsw) 400 mg in 200 mls @ 133 mls/hr IVPB Q12H [facility] Last Admin: 01/08/17 02:14 Dose: 133 mls/hr Cefepime HCl 1 gm/ Dextrose 50 mls @ 100 mls/hr IVPB Q8H [facility] Last Admin: 01/08/17 03:23 Dose: 100 mls/hr Insulin Aspart (Novolog) 0 unit SC ACHS [facility] PRN Reason: Protocol Last Admin: 01/08/17 07:38 Dose: Not Given Lactulose (Enulose) 20 gm PO BID [facility] Last Admin: 01/08/17 09:23 Dose: 20 gm Levothyroxine Sodium (Synthroid) 75 mcg PO DAILY@0630 [facility] Last Admin: 01/08/17 05:32 Dose: 75 mcg Losartan Potassium (Cozaar) 100 mg PO DAILY [facility] Last Admin: 01/08/17 09:23 Dose: 100 mg Potassium Phos/Sodium Phos (Neutra-Phos) 1 pkt PO TID [facility] Last Admin: 01/08/17 09:23 Dose: 1 pkt Propranolol HCl (Inderal La) 60 mg PO DAILY [facility] Last Admin: 01/08/17 09:25 Dose: 60 mg Saliva Substitute (First Magic Mouthwash) 5 ml PO QID [facility] Last Admin: 01/08/17 09:25 Dose: 5 ml Tamsulosin HCl (Flomax) 0.4 mg PO DAILY [facility] Last Admin: 01/08/17 09:24 Dose: 0.4 mg - Labs Labs: 01/08/17 07:39 01/08/17 07:39 PT 13.0 SECONDS (9.7-12.2) H 01/07/17 07:37 INR 1.2 01/07/17 07:37 APTT 22 SECONDS (21-34) 01/03/17 14:50 Assessment and Plan - Assessment and Plan (Free Text) Assessment: DM CAD Cirrhosis - unclear etiology HTN Hypothyroidism Anemia Plan: - Advance diet as tolerated - H/H stable, continue to monitor - Await biopsy results from EGD today - Hepatic hemangioma seen on liver CT, no further imaging follow up required - Continue with antibiotic therapy, follow up ID recommendations - Outpatient colonoscopy from 2015 report reviewed by me showing diminutive adenomatous polyp, small hemorrhoids. No further planned GI intervention, will sign off case. Patient should follow up with primary machinist 2nd shift at [facility] for management of cirrhosis. Please reconsult as necessary , thank you.
[2017-01-08] MEDS ORDERED: Lactated Ringer's 500 ML IV SCH (13:15)
[2017-01-08] MEDS: Lactated Ringer's 1,000 ML IV SCH (14:30)
[2017-01-08 15:46] LABS: HEPARIN-IND PLATELET AB Negative (Negative); RESULT Negative (Negative)
[2017-01-08 16:26] VITALS: RESP 20
--- NOTE | 2017-01-08 18:06 | CP.PCM.PN ---
Subjective - Date & Time of Evaluation Date of Evaluation: 01/08/17 Time of Evaluation: 09:00 - Subjective Subjective: much improved improving on iv antibiotics for gram neg sepsis recommend 14 days iv followed by PO needs and GI follow up Objective - Vital Signs/Intake and Output Vital Signs (last 24 hours): Temp Pulse Resp BP Pulse Ox 98.1 F 62 20 129/76 97 01/08/17 16:00 01/08/17 16:00 01/08/17 16:00 01/08/17 16:00 01/08/17 16:00 Intake and Output: 01/08/17 01/08/17 06:59 18:59 Intake Total 700 700 Output Total 1500 Balance -800 700 - Medications Medications: Current Medications Acetaminophen (Tylenol 325mg Tab) 650 mg PO Q6 PRN PRN Reason: Fever >100.4 F Last Admin: 01/04/17 20:27 Dose: 650 mg Acyclovir (Zovirax) 800 mg PO 5XD [facility] Last Admin: 01/08/17 17:57 Dose: 800 mg Ascorbic Acid (Vitamin C 500 Mg Tab) 500 mg PO DAILY [facility] [place] Last Admin: 01/08/17 09:25 Dose: 500 mg Aspirin (Ecotrin) 81 mg PO DAILY [facility] [place] Last Admin: 01/08/17 09:24 Dose: 81 mg Enoxaparin Sodium (Lovenox) 40 mg SC DAILY [facility] [place] Last Admin: 01/08/17 09:23 Dose: 40 mg Famotidine (Pepcid) 40 mg PO DAILY [facility] [place] Last Admin: 01/08/17 09:24 Dose: 40 mg Hydrochlorothiazide (Hydrodiuril) 25 mg PO DAILY [facility] [place] Last Admin: 01/08/17 09:24 Dose: 25 mg Ciprofloxacin (Cipro 400mg/200ml Dsw) 400 mg in 200 mls @ 133 mls/hr IVPB Q12H [facility] [place] Last Admin: 01/08/17 14:28 Dose: 133 mls/hr Cefepime HCl 1 gm/ Dextrose 50 mls @ 100 mls/hr IVPB Q8H [facility] [place] Last Admin: 01/08/17 12:29 Dose: 100 mls/hr Lactated Ringer's (Lactated Ringer's) 1,000 mls @ 75 mls/hr IV .[id number] [facility] Last Admin: 01/08/17 14:30 Dose: 75 mls/hr Insulin Aspart (Novolog) 0 unit SC ACHS [facility] PRN Reason: Protocol Last Admin: 01/08/17 16:30 Dose: Not Given Lactulose (Enulose) 20 gm PO BID [facility] [place] Last Admin: 01/08/17 17:57 Dose: 20 gm Levothyroxine Sodium (Synthroid) 75 mcg PO DAILY@0630 [facility] Last Admin: 01/08/17 05:32 Dose: 75 mcg Losartan Potassium (Cozaar) 100 mg PO DAILY [facility] [place] Last Admin: 01/08/17 09:23 Dose: 100 mg Potassium Phos/Sodium Phos (Neutra-Phos) 1 pkt PO TID [facility] [place] Last Admin: 01/08/17 17:57 Dose: 1 pkt Propranolol HCl (Inderal La) 60 mg PO DAILY [facility] [place] Last Admin: 01/08/17 09:25 Dose: 60 mg Saliva Substitute (First Magic Mouthwash) 5 ml PO QID [facility] [place] Last Admin: 01/08/17 17:57 Dose: 5 ml Tamsulosin HCl (Flomax) 0.4 mg PO DAILY [facility] [place] Last Admin: 01/08/17 09:24 Dose: 0.4 mg - Labs Labs: 01/08/17 07:39 01/08/17 07:39 PT 13.0 SECONDS (9.7-12.2) H 01/07/17 07:37 INR 1.2 01/07/17 07:37 APTT 22 SECONDS (21-34) 01/03/17 14:50 - Constitutional Appears: Non-toxic, Chronically Ill - Head Exam Head Exam: NORMOCEPHALIC - Eye Exam Eye Exam: PERRL - ENT Exam ENT Exam: Mucous Membranes Dry, Normal External Ear Exam - Neck Exam Neck Exam: absent: Lymphadenopathy - Respiratory Exam Respiratory Exam: Decreased Breath Sounds - Cardiovascular Exam Cardiovascular Exam: REGULAR RHYTHM - GI/Abdominal Exam GI & Abdominal Exam: Distended, Soft - Rectal Exam Rectal Exam: Deferred - Exam Exam: NORMAL INSPECTION - Extremities Exam Extremities Exam: absent: Pedal Edema - Back Exam Back Exam: absent: CVA tenderness (L), CVA tenderness (R) - Neurological Exam Neurological Exam: Alert, Awake, Oriented x3 - Psychiatric Exam Psychiatric exam: Normal Mood - Skin Skin Exam: Dry Assessment and Plan (1) Sepsis Status: Acute (2) BPH (benign prostatic hyperplasia) Status: Acute (3) UTI (urinary tract infection) Status: Acute (4) Septic shock due to Escherichia coli Status: Acute (5) Septic shock due to Escherichia coli Status: Acute
--- NOTE | 2017-01-08 19:39 | CP.PCM.PN ---
Subjective - Date & Time of Evaluation Date of Evaluation: 01/08/17 Time of Evaluation: 07:20 - Subjective Subjective: clinically same Objective - Vital Signs/Intake and Output Vital Signs (last 24 hours): Temp Pulse Resp BP Pulse Ox 98.1 F 62 20 129/76 97 01/08/17 16:00 01/08/17 16:00 01/08/17 16:00 01/08/17 16:00 01/08/17 16:00 Intake and Output: 01/08/17 01/09/17 18:59 06:59 Intake Total 700 Balance 700 - Medications Medications: Current Medications Acetaminophen (Tylenol 325mg Tab) 650 mg PO Q6 PRN PRN Reason: Fever >100.4 F Last Admin: 01/04/17 20:27 Dose: 650 mg Acyclovir (Zovirax) 800 mg PO 5XD [facility] Last Admin: 01/08/17 17:57 Dose: 800 mg Ascorbic Acid (Vitamin C 500 Mg Tab) 500 mg PO DAILY [facility] Last Admin: 01/08/17 09:25 Dose: 500 mg Aspirin (Ecotrin) 81 mg PO DAILY [facility] Last Admin: 01/08/17 09:24 Dose: 81 mg Enoxaparin Sodium (Lovenox) 40 mg SC DAILY [facility] Last Admin: 01/08/17 09:23 Dose: 40 mg Famotidine (Pepcid) 40 mg PO DAILY [facility] Last Admin: 01/08/17 09:24 Dose: 40 mg Hydrochlorothiazide (Hydrodiuril) 25 mg PO DAILY [facility] Last Admin: 01/08/17 09:24 Dose: 25 mg Ciprofloxacin (Cipro 400mg/200ml Dsw) 400 mg in 200 mls @ 133 mls/hr IVPB Q12H [facility] Last Admin: 01/08/17 14:28 Dose: 133 mls/hr Cefepime HCl 1 gm/ Dextrose 50 mls @ 100 mls/hr IVPB Q8H [facility] Last Admin: 01/08/17 12:29 Dose: 100 mls/hr Lactated Ringer's (Lactated Ringer's) 1,000 mls @ 75 mls/hr IV .[id number] [facility] Last Admin: 01/08/17 14:30 Dose: 75 mls/hr Insulin Aspart (Novolog) 0 unit SC ACHS [facility] PRN Reason: Protocol Last Admin: 01/08/17 16:30 Dose: Not Given Lactulose (Enulose) 20 gm PO BID [facility] Last Admin: 01/08/17 17:57 Dose: 20 gm Levothyroxine Sodium (Synthroid) 75 mcg PO DAILY@0630 [facility] Last Admin: 01/08/17 05:32 Dose: 75 mcg Losartan Potassium (Cozaar) 100 mg PO DAILY [facility] Last Admin: 01/08/17 09:23 Dose: 100 mg Potassium Phos/Sodium Phos (Neutra-Phos) 1 pkt PO TID [facility] Last Admin: 01/08/17 17:57 Dose: 1 pkt Propranolol HCl (Inderal La) 60 mg PO DAILY [facility] Last Admin: 01/08/17 09:25 Dose: 60 mg Saliva Substitute (First Magic Mouthwash) 5 ml PO QID [facility] Last Admin: 01/08/17 17:57 Dose: 5 ml Tamsulosin HCl (Flomax) 0.4 mg PO DAILY [facility] Last Admin: 01/08/17 09:24 Dose: 0.4 mg - Labs Labs: 01/08/17 07:39 01/08/17 07:39 PT 13.0 SECONDS (9.7-12.2) H 01/07/17 07:37 INR 1.2 01/07/17 07:37 APTT 22 SECONDS (21-34) 01/03/17 14:50 - Constitutional Appears: Well - Head Exam Head Exam: ATRAUMATIC, NORMAL INSPECTION, NORMOCEPHALIC - Eye Exam Eye Exam: EOMI, Normal appearance, PERRL Pupil Exam: NORMAL ACCOMODATION, PERRL - ENT Exam ENT Exam: Mucous Membranes Moist, Normal Exam - Neck Exam Neck Exam: Full ROM, Normal Inspection. absent: Lymphadenopathy - Respiratory Exam Respiratory Exam: Decreased Breath Sounds - Cardiovascular Exam Cardiovascular Exam: REGULAR RHYTHM, +S1, +S2 - GI/Abdominal Exam GI & Abdominal Exam: Soft, Diminished Bowel Sounds - Rectal Exam Rectal Exam: Deferred
[2017-01-09] MEDS: Ciprofloxacin 400mg/200ml D5W 400 MG/200 ML BAG IVPB SCH ×2 (03:00→15:00)
[2017-01-09] MEDS: Levothyroxine 75 MCG TAB PO SCH (06:15)
[2017-01-09 07:40] LABS: EOS # 0.1 K/uL (0.0-0.7); EOS % 2.7 % (0.0-4.0); HEMATOCRIT 24.8 % (35.0-51.0); LYMPH # 0.9 K/uL (1.0-4.3); LYMPH % 20.7 % (20.0-40.0); MEAN CELL VOLUME 69.5 fL (80.0-94.0); MEAN CORPUSCULAR HEMOGLOBIN 23.9 pg (27.0-31.0); MEAN CORPUSCULAR HGB CONC 34.4 g/dL (33.0-37.0); MEAN PLATELET VOLUME 10.3 fL (7.2-11.7); MONO # 0.5 K/uL (0.0-0.8); MONO % 10.1 % (0.0-10.0); NRBC % 0.3 % (0.0-2.0); RED CELL DISTRIBUTION WIDTH 16.9 % (11.5-14.5); WHITE BLOOD COUNT 4.5 K/uL (4.8-10.8)
[2017-01-09 08:21] LABS: CHLORIDE 101 mmol/L (98-107); POTASSIUM 3.9 mmol/L (3.6-5.2); SODIUM 135 mmol/L (132-148)
[2017-01-09 08:22] LABS: BILIRUBIN,TOTAL 0.8 mg/dL (0.2-1.3); GFR AFRICAN-AMERICAN > 60
[2017-01-09 08:23] LABS: ALB/GLOB RATIO 1.3 (1.0-2.1); ALKALINE PHOSPHATASE 77 U/L (38-126); ALT/SGPT 42 U/L (21-72); AST/SGOT 22 U/L (17-59); BLOOD UREA NITROGEN 7 mg/dL (9-20); CARBON DIOXIDE 25 mmol/L (22-30); GLUCOSE,RANDOM 113 mg/dL (75-110)
[2017-01-09 08:24] LABS: CALCIUM 8.4 mg/dl (8.6-10.4)
[2017-01-09] MEDS: (Novolog) Insulin Aspart, Recombinant 100 u/ml 10 ml vial SC SCH ×4 (09:03→22:00)
[2017-01-09] MEDS: Potassium & Sodium Phosphate PO SCH ×3 (09:05→18:31)
[2017-01-09] MEDS: Mag&Al/Simet/Diphen/Lido 237 ML KIT PO SCH ×4 (09:06→21:39)
[2017-01-09] MEDS: Propranolol 60 mg ER Cap PO SCH (09:22)
[2017-01-09] MEDS: Enoxaparin 40 mg Syringe SC SCH (11:44)
[2017-01-09] MEDS: Lactated Ringer's 1,000 ML IV SCH ×2 (11:55→16:40)
[2017-01-09 16:47] LABS: UFH SRA RESULT Negative (Negative)
[2017-01-09 16:48] LABS: UFH SRA RESULT Negative (Negative)
[2017-01-10] MEDS: Ciprofloxacin 400mg/200ml D5W 400 MG/200 ML BAG IVPB SCH ×2 (02:37→14:49)
[2017-01-10] MEDS: Lactated Ringer's 1,000 ML IV SCH (05:46)
[2017-01-10] MEDS: Levothyroxine 75 MCG TAB PO SCH (05:57)
[2017-01-10] MEDS: (Novolog) Insulin Aspart, Recombinant 100 u/ml 10 ml vial SC SCH ×2 (07:56→11:30)
[2017-01-10] MEDS: Mag&Al/Simet/Diphen/Lido 237 ML KIT PO SCH ×2 (10:10→14:50)
[2017-01-10] MEDS: Potassium & Sodium Phosphate PO SCH ×2 (10:11→14:57)
[2017-01-10] MEDS: Propranolol 60 mg ER Cap PO SCH (10:11)
--- NOTE | 2017-01-10 16:40 | CP.PCM.PN ---
Subjective - Date & Time of Evaluation Date of Evaluation: 01/10/17 Time of Evaluation: 07:00 - Subjective Subjective: clinically same Objective - Vital Signs/Intake and Output Vital Signs (last 24 hours): Temp Pulse Resp BP Pulse Ox 98.6 F 78 20 116/71 95 01/10/17 07:58 01/10/17 07:58 01/10/17 07:58 01/10/17 07:58 01/10/17 07:58 Intake and Output: 01/10/17 01/10/17 06:59 18:59 Intake Total 1000 1450 Output Total 950 1700 Balance 50 -250 - Medications Medications: Current Medications Acetaminophen (Tylenol 325mg Tab) 650 mg PO Q6 PRN PRN Reason: Fever >100.4 F Last Admin: 01/04/17 20:27 Dose: 650 mg Acyclovir (Zovirax) 800 mg PO 5XD [facility] Last Admin: 01/10/17 14:58 Dose: 800 mg Ascorbic Acid (Vitamin C 500 Mg Tab) 500 mg PO DAILY [facility] Last Admin: 01/10/17 10:14 Dose: 500 mg Aspirin (Ecotrin) 81 mg PO DAILY [facility] Last Admin: 01/10/17 10:10 Dose: 81 mg Docusate Sodium (Colace) 100 mg PO BID [facility] Last Admin: 01/10/17 10:09 Dose: 100 mg Famotidine (Pepcid) 40 mg PO DAILY [facility] Last Admin: 01/10/17 10:11 Dose: 40 mg Hydrochlorothiazide (Hydrodiuril) 25 mg PO DAILY [facility] Last Admin: 01/10/17 10:09 Dose: 25 mg Ciprofloxacin (Cipro 400mg/200ml Dsw) 400 mg in 200 mls @ 133 mls/hr IVPB Q12H [facility] Last Admin: 01/10/17 14:49 Dose: 133 mls/hr Cefepime HCl 1 gm/ Dextrose 50 mls @ 100 mls/hr IVPB Q8H [facility] Last Admin: 01/10/17 12:00 Dose: 100 mls/hr Lactated Ringer's (Lactated Ringer's) 1,000 mls @ 75 mls/hr IV .[id number] [facility] Last Admin: 01/10/17 05:46 Dose: Not Given Insulin Aspart (Novolog) 0 unit SC ACHS [facility] PRN Reason: Protocol Last Admin: 01/10/17 11:30 Dose: Not Given Lactulose (Enulose) 20 gm PO BID [facility] Last Admin: 01/10/17 10:10 Dose: 20 gm Levothyroxine Sodium (Synthroid) 75 mcg PO DAILY@0630 [facility] Last Admin: 01/10/17 05:57 Dose: 75 mcg Losartan Potassium (Cozaar) 100 mg PO DAILY [facility] Last Admin: 01/10/17 10:10 Dose: 100 mg Potassium Phos/Sodium Phos (Neutra-Phos) 1 pkt PO TID [facility] [place] Last Admin: 01/10/17 14:57 Dose: 1 pkt Propranolol HCl (Inderal La) 60 mg PO DAILY [facility] Last Admin: 01/10/17 10:11 Dose: 60 mg Saliva Substitute (First Magic Mouthwash) 5 ml PO QID [facility] Last Admin: 01/10/17 14:50 Dose: 5 ml Tamsulosin HCl (Flomax) 0.4 mg PO DAILY [facility] Last Admin: 01/10/17 10:09 Dose: 0.4 mg - Labs Labs: 01/09/17 07:16 01/09/17 07:16 PT 13.0 SECONDS (9.7-12.2) H 01/07/17 07:37 INR 1.2 01/07/17 07:37 APTT 22 SECONDS (21-34) 01/03/17 14:50 - Constitutional Appears: Well - Head Exam Head Exam: ATRAUMATIC, NORMAL INSPECTION, NORMOCEPHALIC - Eye Exam Eye Exam: EOMI, Normal appearance, PERRL Pupil Exam: NORMAL ACCOMODATION, PERRL - ENT Exam ENT Exam: Mucous Membranes Moist, Normal Exam - Neck Exam Neck Exam: Full ROM, Normal Inspection. absent: Lymphadenopathy - Respiratory Exam Respiratory Exam: Decreased Breath Sounds - Cardiovascular Exam Cardiovascular Exam: REGULAR RHYTHM, +S1, +S2 - GI/Abdominal Exam GI & Abdominal Exam: Soft, Diminished Bowel Sounds - Rectal Exam Rectal Exam: Deferred
[2017-01-10 17:11] VITALS: BP 124/68; PULSE 60; TEMP 98.3; O2SAT 99
== END 2017-01-10 17:45 | disposition home or self-care (01) | DRG 872 ==
LOC: C.ER 10:46 → C.9E 15:25 → OBSVTOIN 15:25 → C.5S 16:41 → C.9I 21:22 → C.3T 01-05 22:12
PROVIDERS: ADMIT Internal Medicine Nephrology; ATTEND Internal Medicine Nephrology
PROC: 0DB68ZX Excision of Stomach, Via Natural or Artificial Opening Endoscopic, Diagnostic (ICD-10-PCS; 2017-01-08)
PROC: 0DB98ZX Excision of Duodenum, Via Natural or Artificial Opening Endoscopic, Diagnostic (ICD-10-PCS; principal; 2017-01-08 11:10)
DX: A41.51 Sepsis due to Escherichia coli [E. coli] (principal); D69.6 Thrombocytopenia, unspecified; I11.0 Hypertensive heart disease with heart failure; N39.0 Urinary tract infection, site not specified; I50.30 Unspecified diastolic (congestive) heart failure; B96.20 Unspecified Escherichia coli [E. coli] as the cause of diseases classified elsewhere; E11.9 Type 2 diabetes mellitus without complications; K74.60 Unspecified cirrhosis of liver; E83.39 Other disorders of phosphorus metabolism; I25.10 Atherosclerotic heart disease of native coronary artery without angina pectoris; N40.1 Benign prostatic hyperplasia with lower urinary tract symptoms; K44.9 Diaphragmatic hernia without obstruction or gangrene; Z95.5 Presence of coronary angioplasty implant and graft; K29.60 Other gastritis without bleeding